=== PATIENT | female | born 1975 | race Caucasian/White ===

== ENCOUNTER 2019-10-06 11:11 | Emergency (ER) | payer OTHER, SELFPAY ==
[2019-10-06 11:41] VITALS: BP 159/100; PULSE 88; RESP 16; TEMP 37.1; O2SAT 98; BMI 35.6
[2019-10-06 11:49] VITALS: BP 159/100; PULSE 84; O2SAT 95
--- NOTE | 2019-10-06 12:16 | HMH.EDGENADL ---
ED Disposition Clinical Impression: Abrasion, Shingles Disposition: Home, Self-Care Condition on Discharge: Good Instructions: DI for Laceration Repair, Shingles Prescriptions: Sulfamethoxazole/Trimethoprim [Bactrim DS tablet] 1 each PO BID 10 Days #20 tab Prescription Printed Losartan Potassium 50 mg PO DAILY 30 Days #30 tab Prescription Printed Valacyclovir HCl [Valtrex] 1,000 mg PO BID #20 tab Prescription Printed Referrals: Cornel Farmer MD [Primary Care Provider] - - Critical Care Critical Care Time: No Attestation: On 10/06/19, the high probability of a clinically significant, sudden or life threatening deterioration of the following system(s) required my full and direct attention, intervention and personal management. The time I documented below is in addition to time spent performing reported procedures but includes the following listed in this critical care notation. Medical Decision Making - Medical Records Medical records reviewed: Yes: I reviewed the patient's medical records. - Jb Inquiry Pt receiving controlled substance: No Vital Signs: 10/06/19 11:41 10/06/19 11:49 Temperature 98.7 F Temperature Source Oral Pulse Rate [Left Radial] 88 84 Respiratory Rate 16 Blood Pressure [Right Arm] 159/100 H 159/100 H Blood Pressure Mean [Right Arm] 119 119 Blood Pressure Source [Right Arm] Automatic Cuff Blood Pressure Position [Right Arm] Sitting Sitting 02 Sat by Pulse Oximetry 98 95 Oxygen Delivery Method Room Air Room Air - Lab Data Lab results reviewed: Yes: I reviewed the patient's lab results. General Adult HPI - General Chief complaint: Wound/Laceration Stated complaint: spider bite maybe Time Seen by Provider: 10/06/19 11:12 Mode of Arrival: Ambulatory Source of Information: Patient Limitations: No Limitations Description of Symptoms (Recalled from ER Triage Doc. by RN): to ed per pvt car with c/o spider bite to rt side groin area starting yesterday pt denies fever, nausea, vomiting. - History of Present Illness HPI narrative: 44-year-old female presents the ED with a lesion on her on her right thigh. She stated started yesterday. She complains about some pain and burning pain and also some numbness.Patient denies any recent cough or shortness of breath, patient denies any sore throat or headache, patient denies any loss of taste or smell, patient denies any malaise or fatigue, patient denies any abdominal pain nausea vomiting or diarrhea. - Related Data Previous Rx's Medication Instructions Recorded Losartan Potassium 50 mg PO DAILY 30 Days #30 tab 10/06/19 Sulfamethoxazole/Trimethoprim 1 each PO BID 10 Days #20 tab 10/06/19 [Bactrim DS tablet] Valacyclovir HCl [Valtrex] 1,000 mg PO BID #20 tab 10/06/19 [facility] History - Hepatitis A Screen Drug use history?: No High risk sexual behaviors?: No History of sexually transmitted infection?: No Currently employed?: No Childcare worker?: No Do you have indoor plumbing?: Yes Do you have electricity?: Yes Attestation statement:: This patient has been screened for Hepatitis A risk factors. I have reviewed the patient's past medical history: Yes - Social History Smoking Status: Current every day smoker Tobacco Type: cigarettes # Packs/Day (cigarettes): 1 Alcohol Intake: never Occupational Status: other Housing: other Household Members: other ROS Obtained: Yes All systems reviewed & no additional complaints - Constitutional Constitutional: Reports system reviewed and no additional complaints, except as docu - Eyes Eyes: Reports system reviewed and no additional complaints, except as docu - ENT Ears, Nose, Mouth, and Throat: Reports system reviewed and no additional complaints, except as docu - Cardiovascular Cardiovascular: Reports system reviewed and no additional complaints, except as docu - Respiratory Respiratory: Yes change in phlegm color - Gastrointestinal Gastrointestingal: Myles
[2019-10-06 12:28] VITALS: BP 159/100; PULSE 84; RESP 16; TEMP 37.1; O2SAT 98
== END 2019-10-06 12:28 | disposition home or self-care (01) ==
PROVIDERS: Emergency Provider Family Medicine
DX: B02.9 Zoster without complications (principal)
CPT/HCPCS: 99282

== ENCOUNTER → 2019-12-02 16:13 | Outpatient (CLI) | payer OTHER, SELFPAY ==
[2019-12-02 16:40] LABS: Basophils % 0.4 % (0.1-2.0); Eosinophils # 0.1 K/mm3 (0.0-0.4); Eosinophils % 0.9 % (0.1-12.0); Hematocrit 42.4 % (37.0-47.0); Lymphocytes # 2.7 K/mm3 (0.7-4.5); Lymphocytes % 29.5 % (10-50); Mean Corpuscular HGB Conc 33.1 g/dL (31.8-35.4); Mean Corpuscular Hemoglobin 25.8 pg (27.0-31.2); Mean Corpuscular Volume 78.1 fl (81-99); Mean Platelet Volume 10.1 fl (7.4-10.4); Monocytes # 0.4 K/mm3 (0.1-1.0); Monocytes % 4.8 % (1.7-9.3); Neutrophils # 5.8 K/mm3 (1.8-7.8); Neutrophils % 64.4 % (37.0-80.0); Platelet Count 213 K/mm3 (142-424); Red Blood Count 5.43 M/mm3 (4.20-5.40); Red Cell Distribution Width 17.1 % (11.5-17.5)
[2019-12-02 17:06] LABS: Chloride 105 mmol/L (98-107); Sodium 139 mmol/L (136-145)
[2019-12-02 17:07] LABS: Potassium 3.8 mmoL/L (3.5-5.1)
[2019-12-02 17:09] LABS: Alanine Aminotransferase 20 U/L (12-78); Albumin Level 4.1 g/dl (3.5-5.0); Albumin/Globulin Ratio 1.3 (1.1-1.8); Alkaline Phosphatase 86 U/L (38-126); Anion Gap 14.8 mEq/L (5-15); Aspartate Amino Transferase 25 U/L (14-36); Bilirubin,Total 0.5 mg/dl (0.2-1.3); Blood Urea Nitrogen 10 mg/dl (7-17); Carbon Dioxide 23 mmol/L (22.0-30.0); Estimated Glomerular Filt Rate 91 ml/min (>60); GFR (African American) 111 ML/MIN (>60); Globulin 3.2 g/dL (1.3-3.2); Total Protein,Serum 7.3 g/dl (6.3-8.2)
[2019-12-02 17:10] LABS: Calcium 9.3 mg/dl (8.4-10.2); Chol/HDL Ratio 5.3 (1-3.5); Cholesterol 159 mg/dl (140-200); Glucose 85 mg/dl (74-100); HDL Cholesterol 30 mg/dl (40-60); Triglycerides 155 mg/dl (30-150); VLDL Cholesterol 31 mg/dL (0-40)
[2019-12-02 17:22] LABS: Direct LDL Cholesterol 107.82 mg/dL (100-129)
[2019-12-02 17:28] LABS: T4 (Thyroxine) 13.5 ug/dl (5.53-11.0)
[2019-12-02 17:30] LABS: 25-OH Vitamin D, Total 22.6 ng/mL (30-100)
[2019-12-02 17:41] LABS: Thyroid Stimulating Hormone 0.97 uIU/mL (0.465-4.68)
== END ==
PROVIDERS: Visit Provider Nurse Practitioner Family
DX: B02.9 Zoster without complications (principal); E55.9 Vitamin D deficiency, unspecified; E13.9 Other specified diabetes mellitus without complications; F32.9 Major depressive disorder, single episode, unspecified
CPT/HCPCS: 80053; 80061; 82306; 84436; 84443; 85025

== ENCOUNTER → 2019-12-24 09:47 | Outpatient (CLI) | payer OTHER, SELFPAY ==
--- NOTE | 2019-12-24 09:50 | XR_ITS ---
PROCEDURE: XR FOOT WT BEARING RT 3V CLINICAL INDICATION: Comparison COMPARISON: No exams were available for comparison FINDINGS: No fracture or dislocation. No lytic or blastic change. There is normal mineralization. The joint spaces are well-preserved. No significant degenerative/arthritic changes. No erosive changes evident. Other findings:There is minimal lateral angulation of the distal phalanx of the great toe IMPRESSION: Minimal lateral angulation distal phalanx great toe otherwise negative Dictated by: Darwin Munroe MD 12/24/2019 16:28 Darwin Munroe MD in [place] 12/24/2019 16:28
--- NOTE | 2019-12-24 09:50 | XR_ITS ---
PROCEDURE: XR FOOT WT BEARING LT 3V CLINICAL INDICATION: PAIN COMPARISON: No exams were available for comparison FINDINGS: There is mild hallux valgus with osteoarthritis of the 1st MTP joint. There is varus angulation of the 1st metatarsal. There is 5 mm lateral subluxation of the proximal phalanx of the great toe. Small cystic areas present in the distal aspect of the 1st metatarsal at 3 mm. IMPRESSION: Mild hallux valgus as described above Dictated by: Darwin Munroe MD 12/24/2019 16:28 Darwin Munroe MD in [place] 12/24/2019 16:28
== END ==
PROVIDERS: PCP Nurse Practitioner Family; Visit Provider Nurse Practitioner
DX: E11.65 Type 2 diabetes mellitus with hyperglycemia (principal); M79.672 Pain in left foot
CPT/HCPCS: 73630

== ENCOUNTER → 2020-01-27 10:19 | Outpatient (CLI) | payer OTHER, SELFPAY ==
[2020-01-27 15:22] LABS: Strep Scrn Group A (Rapid) Negative (Negative)
== END ==
PROVIDERS: PCP Nurse Practitioner Family; Visit Provider Physician Assistant
DX: Z03.818 Encounter for observation for suspected exposure to other biological agents ruled out (principal)
CPT/HCPCS: 87275; 87276; 87430; U0003

== ENCOUNTER 2020-02-09 10:08 | Emergency (ER) | payer OTHER, SELFPAY ==
[2020-02-09 10:14] VITALS: BP 176/90; PULSE 93; RESP 17; TEMP 36.6; O2SAT 99; BMI 33.6
--- NOTE | 2020-02-09 10:55 | XR_ITS ---
PROCEDURE: XR ANKLE LT MIN 3V CLINICAL INDICATION: shut car door on ankle Pain COMPARISON: No exams were available for comparison FINDINGS: No fracture or dislocation. No lytic or blastic change. There is normal mineralization. The joint spaces are well-preserved. No significant degenerative/arthritic changes. No erosive changes evident. Other findings:None. IMPRESSION: No acute findings. Dictated by: Darwin Munroe MD 02/09/2020 11:26 Darwin Munroe MD in [place] 02/09/2020 11:26
[2020-02-09 11:00] VITALS: BP 176/90; PULSE 93; RESP 17; TEMP 36.6; O2SAT 99; BMI 33.6
--- NOTE | 2020-02-09 11:13 | HMH.EDUTC ---
[facility] [place] Disposition Clinical Impression: Contusion of ankle, left Qualifiers: Encounter type: initial encounter Qualified Code(s): S90.02XA - Contusion of left ankle, initial encounter Disposition: Home, Self-Care Condition on Discharge: Good Instructions: DI for Ankle Pain Additional Instructions: Rest the extremity, apply ice for 15 minutes as tolerated three or four times per day, Wear the rigoberto wrap for compression, Elevate the extremity as tolerated while you are resting. Take ibuprofen for pain. I sent in a prescription to your pharmacy. Follow up with Dr. Rob. I put in a referral but you need to call her office and schedule an appointment. Follow up with your regular doctor. GO TO THE ER FOR ANY WORSENING SYMPTOMS Prescriptions: Ibuprofen [Ibuprofen 600mg Tablet] 600 mg PO Q6HP PRN #30 tab PRN Reason: Mild Pain Transmission Status: Received by [id number] Referrals: Charbel Spencer APRN [Primary Care Provider] - Briana Rob DPM [Staff Physician] - Forms: Work/School Release Time of Disposition: 11:29 Medical Decision Making - Medical Records Medical records reviewed: No: I reviewed the patient's medical records. - Jb Inquiry Pt receiving controlled substance: No Vital Signs: 02/09/20 10:14 02/09/20 11:00 02/09/20 11:34 Temperature 97.8 F 97.8 F 97.8 F Temperature Source Oral Oral Pulse Rate 93 H Pulse Rate [Right Radial] 93 H 93 H Respiratory Rate 17 17 17 Blood Pressure 176/90 H Blood Pressure [Right Arm] 176/90 H 176/90 H Blood Pressure Mean [Right Arm] 118 118 Blood Pressure Source [Right Arm] Automatic Cuff Blood Pressure Position [Right Arm] Sitting 02 Sat by Pulse Oximetry 99 99 Oxygen Delivery Method Room Air Room Air - Radiology Data #1 Image(s): Ankle Image Reviewed: Yes I reviewed the patient's radiology image, Yes I have reviewed radiologist's interpretation Preliminary Findings: No Fracture Seen PROCEDURE: XR ANKLE LT MIN 3V CLINICAL INDICATION: shut car door on ankle Pain COMPARISON: No exams were available for comparison FINDINGS: No fracture or dislocation. No lytic or blastic change. There is normal mineralization. The joint spaces are well-preserved. No significant degenerative/arthritic changes. No erosive changes evident. Other findings:None. IMPRESSION: No acute findings. Dictated by: Darwin Munroe MD 02/09/2020 11:26 in [facility] HPI - General Stated complaint: AO 02/09/20 lt ankle pain Time Seen by Provider: 02/09/20 11:13 Mode of Arrival: Ambulatory Source of Information: Patient Limitations: No Limitations Description of Symptoms (Recalled from Triage Doc. by RN): PATIENT C/O LEFT ANKLE PAIN AFTER SHUTTING IT IN A CAR DOOR HEENT Symptoms (Recalled from RN notes): No Resp Symptoms (Recalled from RN notes): No Skin Symptoms (Recalled from RN notes): No MS Symptoms (Recalled from RN notes): Yes Functional Status (Recalled from RN notes): WNL - History of Present Illness Provider Complaint: She states that she was getting out of her car to go in to work this morning when she accidentily slammed the car door on her left ankle. Since then she has had left ankle pain that's worse when she tries to bear weight on the ankle. - Related Data Home Medications Medication Instructions Recorded Confirmed acetaminophen 325 mg capsule 650 mg PO Q4-6H PRN cap 10/29/19 01/29/20 Previous Rx's Medication Instructions Recorded diclofenac sodium 1 % topical gel 4 g TOPICAL QID PRN 30 Days #100 g 12/24/19 meloxicam 7.5 mg tablet 7.5 mg PO DAILY 30 Days #30 tab 12/24/19 amlodipine 5 mg tablet 5 mg PO DAILY #30 tab 01/28/20 cyclobenzaprine 10 mg tablet 10 mg PO BID PRN #60 tab 01/28/20 escitalopram oxalate 10 mg tablet 10 mg PO DAILY #30 tab 01/28/20 ferrous sulfate 325 mg (65 mg 325 mg PO DAILY #30 tab 01/28/20 iron) tablet hydrochlorothiazide 12.5 mg tablet 12.5 mg PO DAILY #90 tab
[2020-02-09 11:34] VITALS: BP 176/90; PULSE 93; RESP 17; TEMP 36.6; O2SAT 99
== END 2020-02-09 11:35 | disposition home or self-care (01) ==
PROVIDERS: Emergency Provider Nurse Practitioner Family; PCP Nurse Practitioner Family
DX: S90.02XA Contusion of left ankle, initial encounter (principal); W23.0XXA Caught, crushed, jammed, or pinched between moving objects, initial encounter; Y92.89 Other specified places as the place of occurrence of the external cause; I10 Essential (primary) hypertension; E11.9 Type 2 diabetes mellitus without complications; F17.210 Nicotine dependence, cigarettes, uncomplicated; Z88.0 Allergy status to penicillin; Z79.899 Other long term (current) drug therapy
CPT/HCPCS: 73610; 99201

== ENCOUNTER → 2020-05-06 07:45 | Outpatient (CLI) | payer OTHER, SELFPAY ==
--- NOTE | 2020-05-06 | CA_ITS ---
APPROVED REPORT Exam: Exercise Treadmill Technologist: Louise Colón, Ht: 5 ft 0 in Wt: 203 lbs BSA: 1.88 m2 Medical History Medications: Omeprazole,,,,, Levothyroxine,,,,, Metoprolol,,,,, Metformin,,,,, HCTZ,,,,, TopIRAMATE,,,,, MeLOXICAM,,,,, Cyclobenzaprine,,,,, Amilodipine,,,,, Stress Test Details Test: Manual Treadmill HR Resting HR: 89 bpm Max Heart Rate (APMHR): 177 bpm Max HR Achieved: 139 bpm Target HR (85% APMHR): 150 bpm % of APMHR: 78 Recovery HR: 90 bpm BP Resting BP: 146/97 mmHg Max BP: 170/94 mmHg Recovery BP: 152.0/81.0 mmHg ECG Resting ECG: NSR, NS ST-T abns Clinical Exercise duration: 04:49 min Highest Stage Achieved: Exercise capacity: 7.0 METs Stress ECG Conclusion Excerised 4:49 on Abner Protocol Max HR: 139 % of PM: 79% Max BP: 170/94 METs: 7.0 Stopped test due to: SOA, Fatigue Symptoms: No CP Arrythmias/Ectopy: None ST-T Changes: No significant changes compared to baseline EKG. J point depression with upsloping ST segments that are WNL at 80msec. Conclusion: Probably normal GXT to HR achieved (79% of PM). Rest and stress Echo images reported separately. Electronically signed by : Darius Robison, 05/06/2020 18:07:40
--- NOTE | 2020-05-06 07:46 | CA_ITS ---
APPROVED REPORT EXAM: Comprehensive 2D, Doppler, and color-flow Echocardiogram [employer] Operations Consultant: Jie Red RVT Ht: 5 ft 0 in Wt: 203lbs BSA: 1.88 BP: 153/90 mmHg Indications: CP,DM,SMOKER,HTN Conclusion 1. Patient exercised on Abner protocol for 4 minutes and 49 seconds, achieved 7.1 mets of workload on treadmill, the blood pressure response to exercise was adequate, the EKG with exercise was nondiagnostic as patient did not achieve the target heart rate. 2. No echocardiographic evidence of segmental wall motion abnormality at this level of exercise to suggest underlying ischemic heart disease. 3. Normal left ventricular systolic function. Electronically signed by : Darius Robison, 05/06/2020 18:11:31
--- NOTE | 2020-05-06 07:46 | CA_ITS ---
APPROVED REPORT EXAM: Comprehensive 2D, Doppler, and color-flow Echocardiogram Bell Attendant: Jie Red RVT Ht: 5 ft 0 in Wt: 203lbs BSA: 1.88 BP: 153/90 mmHg Indications: CP,SMOKER,DM,HTN 2D Dimensions LVOT 1.77 cm (M/F) 1.5-2.5 M-Mode Dimensions RVDd 2.65 cm (0.9-2.6) LA Diam 3.43 cm (1.9-4.0) LVDd 4.69 cm (3.5-5.7) Ao Diam 2.91 cm (2.0-3.7) LVDs 2.93 cm (3.5-5.7) IVSd 1.04 cm (0.6-1.1) PWd 0.82 cm (0.6-1.1) EF (Teich) 67.60% FS 37.50% EDV (Teich) 101.90 mL ESV (Teich) 33.00 mL LV Diastology E Decel Time 250.00 (160-240 msec) E/A Ratio 0.8 MED E' 12.80 (< 7 cm/sec) E'/MED E' Ratio 4.52 (>14) LAT E' 14.80 (<10 cm/sec) E/LAT E' Ratio 3.91 (>14) Mitral Valve MV E Max Antonio. 58.00 (40-130 cm/s) MV A Velocity 74.00 (40-130 cm/s) E/A Ratio 0.78 MV Decel. Time 250.00 (160-240 ms) MV PHT 73.00 ms Pulmonary Valve PV Peak Velocity 70.00 (50-150 cm/s) Tricuspid Valve TR P. Velocity 167.00 cm/s RAP Estimate 10.00 mmHg RVSP 21.20 mmHg Left Ventricle Left atrium is normal size, left ventricle is normal size, there is no concentric left ventricular hypertrophy, visually estimated ejection fraction 55% with no regional wall motion abnormality, diastolic parameters are within normal range. Right Ventricle Right atrium and right ventricle are normal size and contractility. Aortic Valve Aortic valve is grossly normal, there is no aortic stenosis or aortic insufficiency. Mitral Valve Mitral valve is grossly normal, there is trace mitral regurgitation. Tricuspid Valve Tricuspid valve is grossly normal, there is trace tricuspid regurgitation. Pulmonic Valve Pulmonic valve is poorly visualized. Great Vessels Aortic root is normal size. Pericardium No significant pericardial effusion noted. Conclusion 1. Normal left ventricular size, preserved left ventricular systolic function, visually estimated ejection fraction 55% with no regional wall motion abnormality, diastolic parameters are within normal range. 2. Trace mitral and tricuspid regurgitation. 3. No significant pericardial effusion noted. Electronically signed by : Darius Robison, 05/06/2020 18:10:28
== END ==
PROVIDERS: PCP Nurse Practitioner Family; Visit Provider Physician Assistant
DX: R07.9 Chest pain, unspecified (principal); I10 Essential (primary) hypertension
CPT/HCPCS: 93017; 93306; 93350

== ENCOUNTER → 2020-05-12 10:31 | Outpatient (CLI) | payer OTHER, SELFPAY ==
--- NOTE | 2020-05-12 10:51 | XR_ITS ---
PROCEDURE: XR CHEST 2V CLINICAL HISTORY: chest pain, tobacco use COMPARISON: No exams were available for comparison FINDINGS: The cardiomediastinal silhouette and pulmonary vascularity are within normal limits. The lungs are clear without infiltrates, suspicious nodules, or pleural effusions. No acute bony abnormalities. IMPRESSION: No acute findings. Dictated by: Darwin Munroe MD 05/12/2020 15:46 Darwin Munroe MD in [place] 05/12/2020 15:46
[2020-05-12 11:02] LABS: Basophils # 0.1 K/mm3 (0-0.2); Basophils % 0.8 % (0.1-2.0); Eosinophils # 0.1 K/mm3 (0.0-0.4); Eosinophils % 1.1 % (0.1-12.0); Hematocrit 47.9 % (37.0-47.0); Lymphocytes # 2.8 K/mm3 (0.7-4.5); Lymphocytes % 28.5 % (10-50); Mean Corpuscular HGB Conc 31.4 g/dL (31.8-35.4); Mean Corpuscular Hemoglobin 27.4 pg (27.0-31.2); Mean Corpuscular Volume 87.5 fl (81-99); Mean Platelet Volume 9.7 fl (7.4-10.4); Monocytes # 0.4 K/mm3 (0.1-1.0); Monocytes % 4.2 % (1.7-9.3); Neutrophils # 6.4 K/mm3 (1.8-7.8); Neutrophils % 65.4 % (37.0-80.0); Platelet Count 264 K/mm3 (142-424); Red Blood Count 5.48 M/mm3 (4.20-5.40); Red Cell Distribution Width 16.3 % (11.5-17.5); White Blood Count 9.8 K/mm3 (4.8-10.8)
[2020-05-12 11:24] LABS: Alanine Aminotransferase 29 U/L (12-78); Albumin Level 4.5 g/dl (3.5-5.0); Alkaline Phosphatase 75 U/L (38-126); Anion Gap 10.1 mEq/L (5-15); Aspartate Amino Transferase 26 U/L (14-36); Bilirubin,Direct 0.3 mg/dl (0.0-0.4); Bilirubin,Total 0.3 mg/dl (0.2-1.3); Blood Urea Nitrogen 12 mg/dl (7-17); Calcium 9.9 mg/dl (8.4-10.2); Carbon Dioxide 25 mmol/L (22.0-30.0); Chloride 107 mmol/L (98-107); Chol/HDL Ratio 4.2 (1-3.5); Cholesterol 172 mg/dl (140-200); Estimated Glomerular Filt Rate 78 ml/min (>60); GFR (African American) 95 ML/MIN (>60); Glucose 99 mg/dl (74-100); HDL Cholesterol 41 mg/dl (40-60); Potassium 4.1 mmoL/L (3.5-5.1); Sodium 138 mmol/L (136-145); Total Protein,Serum 7.8 g/dl (6.3-8.2); Triglycerides 206 mg/dl (30-150); VLDL Cholesterol 41 mg/dL (0-40)
[2020-05-12 11:35] LABS: Direct LDL Cholesterol 108.51 mg/dL (100-129)
== END ==
PROVIDERS: PCP Nurse Practitioner Family; Visit Provider Physician Assistant
DX: R07.9 Chest pain, unspecified (principal); I10 Essential (primary) hypertension
CPT/HCPCS: 71046; 80048; 80061; 80076; 85025

== ENCOUNTER → 2020-06-14 09:34 | Outpatient (CLI) | payer OTHER, SELFPAY ==
--- NOTE | 2020-06-14 09:36 | CA_ITS ---
APPROVED REPORT Interventional Radiology Tech: Jie Red RVT Study Quality: Good Indications: HTN Risk Factors Hypertension Obesity Renal Artery Doppler Origin (R) 222.5/ cm/sec Proximal (R) 190.7/ cm/sec Mid (R) 219.6/ cm/sec Distal (R) 169.0/ cm/sec Renal Aorta Ratio (R) 2.27 Segmental A. (R) 51.4/23.4 cm/sec RI: 0.54 Segmental A. Sup (R) 51.4/23.4 cm/sec Segmental A. Mid (R) 50.2/14.0 cm/sec Segmental A. Inf (R) 37.4/14.0 cm/sec Origin (L) 170.5/ cm/sec Proximal (L) 180.6/ cm/sec Mid (L) 215.3/ cm/sec Distal (L) 222.5/ cm/sec Renal Aorta Ratio (L) 2.27 Segmental A. (L) 74.3/23.9 cm/sec RI: 0.67 Segmental A. Sup (L) 74.3/23.9 cm/sec Segmental A. Mid (L) 51.7/15.9 cm/sec Segmental A. Inf (L) 71.6/27.9 cm/sec Renal Measurements Kidney Size (R) 11.9x6.6 cm Cortical Thickness (R) 1.1 cm Kidney Size (L) 12.6x6.5 cm Cortical Thickness (L) 1.4 cm Findings Study suggests greater than 60% stenosis of the bilateral renal arteries. There is a gallstone visualized in the GB body. Conclusion Study suggests greater than 60% stenosis of the bilateral renal arteries. There is a gallstone visualized in the GB body. Electronically signed by : Darwin Munroe MD 06/14/2020 14:55:59
== END ==
PROVIDERS: PCP Nurse Practitioner Family; Visit Provider Urology
DX: I10 Essential (primary) hypertension (principal)
CPT/HCPCS: 93976

== ENCOUNTER → 2020-07-03 08:20 | Outpatient (CLI) | payer OTHER, SELFPAY ==
[2020-07-03 09:08] LABS: Basophils # 0.1 K/mm3 (0-0.2); Basophils % 0.6 % (0.1-2.0); Eosinophils # 0.1 K/mm3 (0.0-0.4); Eosinophils % 1.3 % (0.1-12.0); Hematocrit 42.6 % (37.0-47.0); Hemoglobin 13.5 g/dL (12.2-16.2); Lymphocytes # 3.3 K/mm3 (0.7-4.5); Lymphocytes % 36.3 % (10-50); Mean Corpuscular HGB Conc 31.8 g/dL (31.8-35.4); Mean Corpuscular Hemoglobin 26.9 pg (27.0-31.2); Mean Corpuscular Volume 84.6 fl (81-99); Mean Platelet Volume 9.5 fl (7.4-10.4); Monocytes # 0.6 K/mm3 (0.1-1.0); Monocytes % 6.1 % (1.7-9.3); Neutrophils # 5.1 K/mm3 (1.8-7.8); Neutrophils % 55.8 % (37.0-80.0); Platelet Count 245 K/mm3 (142-424); Red Blood Count 5.04 M/mm3 (4.20-5.40); Red Cell Distribution Width 15.3 % (11.5-17.5); White Blood Count 9.1 K/mm3 (4.8-10.8)
[2020-07-03 10:04] LABS: Anion Gap 12.9 mEq/L (5-15); Blood Urea Nitrogen 13 mg/dl (7-17); Calcium 9.4 mg/dl (8.4-10.2); Carbon Dioxide 26 mmol/L (22.0-30.0); Chloride 107 mmol/L (98-107); Estimated Glomerular Filt Rate 78 ml/min (>60); GFR (African American) 94 ML/MIN (>60); Glucose 78 mg/dl (74-100); Potassium 3.9 mmoL/L (3.5-5.1); Sodium 142 mmol/L (136-145)
[2020-07-03 10:18] LABS: Coronavirus 19 IgG Antibody Negative (Negative); Coronavirus 19 IgM Antibody Negative (Negative)
== END ==
PROVIDERS: Visit Provider Urology
DX: I10 Essential (primary) hypertension (principal); I73.9 Peripheral vascular disease, unspecified; I70.1 Atherosclerosis of renal artery; Z72.0 Tobacco use; R42 Dizziness and giddiness
CPT/HCPCS: 36415; 80048; 85025; 86328

== ENCOUNTER 2020-07-05 09:07 | Day surgery (SDC) | payer OTHER, SELFPAY ==
[2020-07-05] VITALS (21 sets, daily range): BP systolic 107–140; BP diastolic 64–87; PULSE 56–89; RESP 12–18; O2SAT 93–99; BMI 41.0
--- NOTE | 2020-07-05 07:29 | IR_ITS ---
APPROVED REPORT Patient Location: Outpatient Healthcare Administrator: GRETA Weller RT (R) PROCEDURES Bilateral selective renal angiography INDICATION Abnormal renal duplex, Suspected renal artery stenosis Informed consent was obtained prior to the procedure. COMPLICATIONS NONE Estimated Blood Loss: LESS THAN 10 ML TECHNIQUE 1% lidocaine used to anesthetize the right femoral groin. The right femoral artery was accessed via the Seldinger technique. A 4 Lebanese sheath was placed in the right femoral artery. The JR4 catheter was used to selectively intubate each renal artery. At the end of the diagnostic angiogram the patient was transferred to the postop holding area in stable condition for sheath removal. ANGIOGRAPHIC RESULTS The left renal artery singular normal The right renal artery singular and has a smooth ostial 10% stenosis IMPRESSION Mild nonflow limiting right renal artery stenosis PLAN 1. Treatment of essential hypertension Electronically signed by : Modesto Martinez, 07/05/2020 10:50:58
== END 2020-07-05 14:45 | disposition home or self-care (01) ==
LOC: CATHLAB 09:08
PROVIDERS: PCP Nurse Practitioner Family; Visit Provider Internal Medicine
DX: I70.1 Atherosclerosis of renal artery (principal); Z79.84 Long term (current) use of oral hypoglycemic drugs; E11.9 Type 2 diabetes mellitus without complications; I10 Essential (primary) hypertension; Z72.0 Tobacco use
CPT/HCPCS: 36252; 99152; C1725; C1769; J1644; Q9967

== ENCOUNTER → 2020-07-08 14:27 | Outpatient (CLI) | payer OTHER, SELFPAY ==
--- NOTE | 2020-07-08 14:28 | CA_ITS ---
APPROVED REPORT Pig Caster: Aubrie Mendez, NAIL GALVANIZER Surgery/Intervention cath 01-05-21 Findings No evidence of pseudoaneurysm, hematoma, or AV fistula of the right groin. Enlarged Lymph node noted. Conclusion No evidence of pseudoaneurysm, hematoma, or AV fistula of the right groin. Electronically signed by : Rabia Mercedes, 07/09/2020 13:11:58
[2020-07-08 14:52] LABS: Microscopic, Urine URINE MICROSCOPIC (MICROSCOPIC)
[2020-07-08 15:15] LABS: Basophils # 0.1 K/mm3 (0-0.2); Basophils % 0.6 % (0.1-2.0); Eosinophils # 0.1 K/mm3 (0.0-0.4); Hematocrit 43.2 % (37.0-47.0); Hemoglobin 13.7 g/dL (12.2-16.2); Lymphocytes # 2.9 K/mm3 (0.7-4.5); Lymphocytes % 28.1 % (10-50); Mean Corpuscular HGB Conc 31.7 g/dL (31.8-35.4); Mean Corpuscular Hemoglobin 27.1 pg (27.0-31.2); Mean Corpuscular Volume 85.4 fl (81-99); Monocytes # 0.6 K/mm3 (0.1-1.0); Monocytes % 5.8 % (1.7-9.3); Neutrophils # 6.8 K/mm3 (1.8-7.8); Neutrophils % 64.6 % (37.0-80.0); Platelet Count 220 K/mm3 (142-424); Red Blood Count 5.06 M/mm3 (4.20-5.40); Red Cell Distribution Width 15.3 % (11.5-17.5); White Blood Count 10.5 K/mm3 (4.8-10.8)
[2020-07-08 16:32] LABS: Appearance,Urine CLEAR (Clear); Bilirubin,Urine Negative (Negative); Blood, Urine Negative (Negative); Color,Urine YELLOW (Yellow); Glucose,Urine (UA) Negative (Negative); Ketones,Urine Negative (Negative); Leukocyte Esterase,Urine Negative (Negative); Nitrate,Urine Negative (Negative); PH,Urine 7.5 (5.0-8.5); Protein,Urine Negative (Negative); Urobilinogen,Urine 0.2 EU/dl (0.2)
[2020-07-08 16:33] LABS: Anion Gap 12.7 mEq/L (5-15); Blood Urea Nitrogen 11 mg/dl (7-17); Calcium 9.3 mg/dl (8.4-10.2); Carbon Dioxide 24 mmol/L (22.0-30.0); Chloride 108 mmol/L (98-107); Estimated Glomerular Filt Rate 109 ml/min (>60); GFR (African American) 131 ML/MIN (>60); Glucose 85 mg/dl (74-100); Potassium 4.7 mmoL/L (3.5-5.1); Sodium 140 mmol/L (136-145)
[2020-07-08 16:41] LABS: Amorphous Sediment,Urine 2+ /lpf
== END ==
PROVIDERS: PCP Nurse Practitioner Family; Visit Provider Internal Medicine Cardiovascular Disease
DX: I70.1 Atherosclerosis of renal artery (principal); I73.9 Peripheral vascular disease, unspecified; R42 Dizziness and giddiness; M79.604 Pain in right leg; M79.605 Pain in left leg; R60.0 Localized edema
CPT/HCPCS: 36415; 80048; 81001; 85025; 93926

== ENCOUNTER → 2020-07-09 10:23 | Outpatient (CLI) | payer OTHER, SELFPAY ==
--- NOTE | 2020-07-09 10:49 | CT_ITS ---
PROCEDURE: CT ABDOMEN PELVIS WO/W CON CLINICAL INDICATION: enlarged lymph node right groin COMPARISON: No exams were available for comparison TECHNIQUE: IV Contrast: 75ML Isovue 370 Oral Contrast None Axial images obtained with sagittal and coronal reformats. All CT scans at the facility use one or more dose reduction, viz: automated exposure control, ma/kV adjustment per patient size (including targeted exams where dose is matched to indication, i.e. head), or iterative reconstruction technique. FINDINGS: LOWER THORAX: Minor bibasal atelectasis is noted. ABDOMEN & PELVIS: The liver, spleen, adrenal glands, pancreas and kidneys are unremarkable. The large and small bowel loops demonstrate no focal wall thickening, obstruction or adjacent inflammatory changes. Mild to moderate fecal retention of the colon is noted. The appendix is normal. No free fluid or free intraperitoneal air. Atherosclerotic vascular calcification is noted. The visualized pelvic structures demonstrate no focal abnormality. No free fluid or free intraperitoneal air. Small fat containing anterior abdominal wall hernia is noted. Minor degenerative changes of the visualized lumbar spine. There are few scattered lymph nodes noted in the bilateral inguinal regions. The largest on the right measures approximately 1.8 x 0.8 x 1 centimeter. No other significant lymphadenopathy is noted. IMPRESSION: No acute intra-abdominal abnormality. Right inguinal lymph node measuring 1.8 x 0.8 x 1 centimeter. Ultrasound of the right inguinal region is recommended for further evaluation. Small fat containing anterior abdominal wall hernia. Dictated by: Rabia Mercedes 07/09/2020 12:29 Rabia Mercedes in [place] 07/09/2020 12:29
[2020-07-09 11:00] LABS: Blood Urea Nitrogen 10 mg/dl (7-17); Estimated Glomerular Filt Rate 91 ml/min (>60); GFR (African American) 110 ML/MIN (>60)
== END ==
PROVIDERS: PCP Nurse Practitioner Family; Visit Provider Internal Medicine
DX: R59.9 Enlarged lymph nodes, unspecified (principal); R93.89 Abnormal findings on diagnostic imaging of other specified body structures
CPT/HCPCS: 36415; 74178; 82565; 84520; Q9967

== ENCOUNTER → 2020-08-05 08:56 | Outpatient (POV) | payer OTHER, SELFPAY ==
[2020-08-05 09:07] VITALS: BP 133/78; PULSE 78; RESP 18; O2SAT 99; BMI 34.9
--- NOTE | 2020-08-05 09:37 | HMH.PMCON ---
Assessment and Plan (1) Neuralgia of right inguinal region Status: Acute Category: Medical Code(s): M79.2 - Neuralgia and neuritis, unspecified - Assessment and plan all Dx Assessment and Plan for all problems:: We will start the patient on Cymbalta 30 mg 1 p.o. daily. We will follow up with her in 3 weeks reassess her symptoms at that time. If she does not get relief we may discuss inguinal nerve block. She has been instructed to call the office if she has any issues prior to her next appointment. Dr. Pina has reviewed this note and agrees with this plan of care. This note was dictated using voice recognition software and may contain errors or omissions HPI - Data of Consult Consult date: 08/05/20 Requesting Physician: Reanna Saba APRN Primary Care Provider: Referral Provider, - Consult Narrative Reason for consult: Right groin pain History of present illness: Ms. Joshi is a 45 year old female who presents today for consultation in regards to her right groin pain. Patient had a catheterization and since then has had quite a bit of burning pain in her right groin area. She does have a CT scan showing a enlarged lymph node in this area. Patient has had injection therapy in the past for her back pain but not for this pain. Patient would like to hold off on injection therapy at this time. We discussed medication management for a short amount of time. Patient has a anaphylaxis to gabapentin and Lyrica. I discussed Cymbalta. She states she is taken this in the past with no adverse reaction. Rates her pain today a 5 out of 10. She states she is had this for about a month and a half. CC: Reanna Saba APRN [facility] History I have reviewed the patient's past medical history: Yes Medical History: Reports:: Hyperlipidemia, Hypertension Denies:: Cancer, Diabetes Mellitus Type 1, Diabetes Mellitus Type 2, MRSA, Seizures *Have you ever received a pneumonia vaccine?: Yes *Have you received a flu vaccine this season?: Yes Other Medical History: Reports: Anemia, Arthritis, Thyroid Disease Other Surgeries: Yes: Angiogram, Amputation: No - *Social History Smoking Status: Current every day smoker Tobacco Type: cigarettes # Packs/Day (cigarettes): 1 #Yrs smoked (if former smoker): 24 Alcohol Intake: never Substance Use Type: denies use *Occupational Status:: other Housing: house Household Members: other *Travel in the last 8 weeks: None Family Hx:: Unable to obtain Review of Systems - Review of Systems ROS General: no recent weight change, no fever, no sleep disturbances Respiratory: no cough, no shortness of air, no recurring pulmonary infections Cardiovascular/Peripheral Vascular: No chest pain, No palpitations, no edema, no shortness of breath. Gastrointestinal: no new onset incontinence, normal bowel movements reported Genitourinary: no new onset incontinence Musculoskeletal: Right groin pain Psychiatric: normal mood/ affect Neurological: [denies new onset weakness in extremities], [denies new onset balance issues] Meds Home Medications Medication Instructions Recorded Confirmed Type acetaminophen 325 mg capsule 650 mg PO Q4-6H PRN cap 10/29/19 07/28/20 History meloxicam 7.5 mg tablet 7.5 mg PO DAILY 30 Days #30 tab 12/24/19 07/28/20 Rx Ibuprofen [Ibuprofen 600mg 600 mg PO Q6HP PRN #30 tab 02/09/20 07/28/20 Rx Tablet] cyclobenzaprine 10 mg tablet 10 mg PO BID PRN #60 tab 06/16/20 07/28/20 Rx Escitalopram Oxalate 10 mg PO DAILY 07/05/20 07/28/20 History Ferrous Sulfate 325 mg PO DAILY 07/05/20 07/28/20 History Levothyroxine Sodium 125 mcg PO DAILY 07/05/20 07/28/20 History [Levothyroxine] amlodipine 10 mg tablet 10 mg PO BID #180 tab 07/30/20 Rx hydrochlorothiazide 12.5 mg tablet 12.5 mg PO DAILY #90 tab 07/30/20 Rx metformin 500 mg tablet,extended 500 mg PO DAILY #90 tab 07/30/20 Rx release 24 hr metoprolol succinate 50 mg 50 mg PO DAILY #90 tab 07/09
== END ==
PROVIDERS: Visit Provider Clinical Nurse Specialist Family Health
DX: M79.2 Neuralgia and neuritis, unspecified (principal)
CPT/HCPCS: 99202; G0463

== ENCOUNTER → 2020-08-26 09:31 | Outpatient (POV) | payer OTHER, SELFPAY ==
[2020-08-26 09:46] VITALS: BP 135/78; PULSE 68; RESP 18; O2SAT 98; BMI 33.2
--- NOTE | 2020-08-26 10:09 | HMH.PAINSOAP ---
[facility] Pain Management SOAP Note Subjective:: Patient is a pleasant 45-year-old white female who presents today for follow-up. Patient was started on Cymbalta she did not tolerate this well. She rates her pain a 4 out of 10. Patient has quite a bit of burning pain in her right groin area secondary to a catheterization she had quite some time ago. She has CT scanning showing an enlarged lymph node in this area however no other additional issues. Patient has had injection therapy in the past for her back pain but not for this pain. Patient is highly allergic to gabapentin and Lyrica. We did tried Cymbalta with no relief. She rates her pain a 4 out of 10 today we discussed inguinal nerve block. ROS General: no recent weight change, no fever, no sleep disturbances Respiratory: no cough, no shortness of air, no recurring pulmonary infections Cardiovascular/Peripheral Vascular: No chest pain, No palpitations, no edema, no shortness of breath. Gastrointestinal: no new onset incontinence, normal bowel movements reported Genitourinary: no new onset incontinence Musculoskeletal: Right groin pain Psychiatric: normal mood/ affect, right groin pain Neurological: [denies new onset weakness in extremities], [denies new onset balance issues] Objective:: Physical Exam General: Alert and oriented x3, no acute distress, pleasant and cooperative, [on room air] Lungs: Resps E/U, Symmetrical chest expansion, Eyes: PERRL Musculoskeletal: Flexion and extension of lumbar spine somewhat guarded secondary to pain, deep tendon reflexes normal, strength in upper and lower extremities [5/5], slightly antalgic gait noted Neurological: speech clear, 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 Dr. Pina has reviewed this note and agrees with this plan of care. This note was dictated using voice recognition software and may contain errors or omissions [facility] History I have reviewed the patient's past medical history: Yes Medical History: Reports:: Hyperlipidemia, Hypertension Denies:: Cancer, Diabetes Mellitus Type 1, Diabetes Mellitus Type 2, MRSA, Seizures *Have you ever received a pneumonia vaccine?: Yes *Have you received a flu vaccine this season?: Yes Other Medical History: Reports: Anemia, Arthritis, Thyroid Disease Other Surgeries: Yes: Angiogram, Amputation: No - *Social History Smoking Status: Current every day smoker Tobacco Type: cigarettes # Packs/Day (cigarettes): 1 #Yrs smoked (if former smoker): 24 Alcohol Intake: never Substance Use Type: denies use *Occupational Status:: other Housing: house Household Members: other *Travel in the last 8 weeks: None Family Hx:: Unable to obtain
== END ==
PROVIDERS: Visit Provider Clinical Nurse Specialist Family Health
DX: G58.8 Other specified mononeuropathies (principal)
CPT/HCPCS: 99212; G0463

== ENCOUNTER 2020-09-10 09:35 | Day surgery (SDC) | payer OTHER, SELFPAY ==
[2020-09-10 09:46] VITALS: BP 184/95; PULSE 78; RESP 18; TEMP 36.6; O2SAT 97; BMI 34.7
[2020-09-10 10:19] VITALS: BP 156/85; PULSE 75; RESP 18; O2SAT 97
[2020-09-10 10:20] VITALS: BP 156/85; PULSE 75; RESP 18; O2SAT 97
--- NOTE | 2020-09-10 10:27 | HMH.PMPROC ---
- Procedure Date: 09/10/20 Time: 10:27 Anesthesiologist:: Fabrice Pina MD Complications:: None Pre-procedure Diagnosis:: Right groin pain with inguinal neuralgia Post-procedure Diagnosis:: Same Indications for Procedure:: Patient is a pleasant 45-year-old white female who developed some right groin pain after cardiac catheterization. They did have groin access. She has now been treated for inguinal neuralgia. She has been on Cymbalta with no relief. She is allergic to gabapentin and Lyrica. We will do a right ileal inguinal/iliohypogastric nerve block today to help with her groin pain on the right side. Procedure Details:: Right ilioinguinal/iliohypogastric nerve block Informed consent was obtained and the risk and benefits of the procedure were explained to the patient. Patient was taken the procedure room. The right groin was prepped using ChloraPrep. A 25-gauge needle was used and we injected 10 mL bupivacaine 0.25% and Depo-Medrol 40 mg into the area of the right inguinal area, right ilioinguinal/iliohypogastric nerves. Patient tolerated procedure well with no complications. Plan and Disposition:: We will follow-up with her in 2 weeks. Will reevaluate symptoms at that time.
[2020-09-10 10:30] VITALS: BP 157/84; PULSE 83; RESP 20; O2SAT 97
== END 2020-09-10 10:32 | disposition home or self-care (01) ==
PROVIDERS: PCP Nurse Practitioner Family; Visit Provider Anesthesiology
DX: R10.31 Right lower quadrant pain (principal); G58.8 Other specified mononeuropathies; E07.9 Disorder of thyroid, unspecified; E78.5 Hyperlipidemia, unspecified; I10 Essential (primary) hypertension; M19.90 Unspecified osteoarthritis, unspecified site; D64.9 Anemia, unspecified; E11.9 Type 2 diabetes mellitus without complications; Z72.0 Tobacco use; Z88.0 Allergy status to penicillin; Z88.6 Allergy status to analgesic agent; Z79.899 Other long term (current) drug therapy
CPT/HCPCS: 64425; J1040

== ENCOUNTER → 2020-10-04 09:50 | Outpatient (POV) | payer OTHER, SELFPAY ==
[2020-10-04 10:08] VITALS: BP 187/91; PULSE 83; RESP 16; O2SAT 99; BMI 40.2
--- NOTE | 2020-10-04 10:33 | HMH.PAINSOAP ---
[facility] Pain Management SOAP Note Subjective:: Patient is a 45-year-old white female who presents today for follow-up after inguinal nerve block. Patient continues to have significant right inguinal pain as well as low back pain and bilateral leg pain. Patient says that following a scope to her right groin, she began to have severe stinging-like sensation to the area. Patient does have chronic low back pain and did undergo surgical intervention of her lumbar spine in [address] Colby in [facility]. She has continued to have significant low back pain since her surgery. She is also having bilateral leg pain with standing and walking as well as paresthesia to her lower extremities. She has undergone multiple modalities of therapy with no significant relief. She has had injective therapy as well as physical therapy for greater than 6 weeks. She is also tried home stretching and ice and heat therapies. Oral medications have not given her relief. She has tried anti-inflammatories. She does rate her pain a 4 out of 10 with sitting and an 8 or 9 out of 10 with any type of movement or work. Patient and I did discuss possible spinal cord stimulation for her chronic low back and lower extremity and groin pain. We also discussed compounding cream to apply topically to the area until she can undergo a psychological evaluation. Review of Systems General: No recent weight changes, no fever, no sleep disturbances Respiratory: No cough, no shortness of air, no recurring pulmonary infections Cardiovascular/peripheral vascular: No chest pain, no palpitations, no edema, no shortness of breath Gastrointestinal: No new onset incontinence, normal bowel movements reported Genitourinary: No new onset incontinence Musculoskeletal: Low back pain with radiation into right groin and bilateral legs with numbness bilateral lower extremities Psychiatric: Normal mood/affect Neurological: [Denies weakness in extremities], [denies balance issues] Objective:: Physical exam General: Alert and oriented x3, no acute distress, pleasant and cooperative, [on room air] Lungs: Respirations even and unlabored, symmetrical chest expansion Eyes: PERRL Musculoskeletal: Flexion and extension of [] lumbar spine somewhat guarded secondary to pain, deep tendon reflexes normal, strength in upper and lower extremities [5/5], [abnormal gait noted], tenderness to palpation to right groin Neurological: 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 She and I had a long discussion today for possible spinal cord stimulation. The patient has tried and failed conservative therapies of physical therapy for more than 6 weeks, home stretching, and anti-inflammatories. She continues use ice and heat therapies. She has had back surgery to her lumbar spine and continues to have pain. She is not considered a surgical candidate. Injective therapy has not given the patient any relief. She continues to have pain in her low back with radiation into right groin bilateral lower extremities with paresthesia. We will see her back in the clinic after her psychological evaluation to discuss further plan of care. Will order compounding cream to apply topically to her low back and groin without gabapentin. Patient does have allergy to gabapentin. Patient has been instructed to contact the clinic with any concerns before the next appointment. Dr. Pina has reviewed this note and agrees with this plan of care. This note was dictated using voice recognition software and make contain errors or omissions. [facility] History I have reviewed the patient's past medical history: Yes Medical History: Reports:: Hyperlipidemia, Hypertension Denies:: Cancer, Diabetes Mellitus Type 1, Diabetes Mellitus Type
== END ==
PROVIDERS: PCP Nurse Practitioner Family; Visit Provider Clinical Nurse Specialist Family Health
DX: M51.16 Intervertebral disc disorders with radiculopathy, lumbar region (principal); R10.31 Right lower quadrant pain; G58.8 Other specified mononeuropathies
CPT/HCPCS: 99212; G0463

== ENCOUNTER 2020-11-10 16:47 | Emergency (ER) | payer OTHER, SELFPAY ==
[2020-11-10 16:48] VITALS: BP 143/81; PULSE 98; RESP 22; TEMP 37.1; O2SAT 98; BMI 34.4
--- NOTE | 2020-11-10 17:17 | HMH.EDUTC ---
[facility] [place] Disposition Clinical Impression: Paresthesia of bilateral legs, Paresthesia and pain of both upper extremities Disposition: Home, Self-Care Condition on Discharge: Good Instructions: Peripheral Neuropathy Additional Instructions: Drink plenty of fluids. Take tylenol for pain or fever. Return if you begin to have difficulty breathing. Follow up with your regular doctor. GO TO THE ER FOR ANY WORSENING SYMPTOMS Prescriptions: methylPREDNISolone [Medrol] 4 mg PO DIRECTED 6 Days #21 tab.ds.pk Transmission Status: Received by [id number] Referrals: Charbel Spencer APRN [Primary Care Provider] - Forms: Work/School Release Time of Disposition: 17:48 Medical Decision Making - Medical Records Medical records reviewed: No: I reviewed the patient's medical records. - Jb Inquiry Pt receiving controlled substance: No Vital Signs: 11/10/20 16:48 11/10/20 17:55 Temperature 98.7 F 98.7 F Temperature Source Oral Pulse Rate 98 H Pulse Rate [Left Radial] 98 H Respiratory Rate 22 22 Blood Pressure 143/81 H Blood Pressure [Right Arm] 143/81 H Blood Pressure Mean [Right Arm] 101 Blood Pressure Source [Right Arm] Automatic Cuff Blood Pressure Position [Right Arm] Sitting 02 Sat by Pulse Oximetry 98 Oxygen Delivery Method Room Air [facility] [place] HPI - General Stated complaint: Pins [place] in hands & feet & weakness Time Seen by Provider: 11/10/20 17:18 - History of Present Illness Provider Complaint: She states that for the past 1 week she has had the feeling of pin and needles sticking in her hands and feet. She has a history of neuropathy. She denies that she is diabetic. She denies any weakness. - Related Data Home Medications Medication Instructions Recorded Confirmed acetaminophen 325 mg capsule 650 mg PO Q4-6H PRN cap 10/29/19 10/27/20 Previous Rx's Medication Instructions Recorded Ibuprofen [Ibuprofen 600mg 600 mg PO Q6HP PRN #30 tab 02/09/20 Tablet] amlodipine 10 mg tablet 10 mg PO BID #180 tab 10/27/20 cyclobenzaprine 10 mg tablet 10 mg PO BID PRN #60 tab 10/27/20 ferrous sulfate 325 mg (65 mg 325 mg PO DAILY #90 tab 10/27/20 iron) tablet hydrochlorothiazide 12.5 mg tablet 12.5 mg PO DAILY #90 tab 10/27/20 levothyroxine 125 mcg capsule 125 mcg PO DAILY #90 cap 10/27/20 metformin 500 mg tablet,extended 500 mg PO DAILY #90 tab 10/27/20 release 24 hr metoprolol succinate 50 mg 50 mg PO DAILY #90 tab 10/27/20 tablet,extended release 24 hr omeprazole 20 mg capsule,delayed 20 mg PO BID #180 cap 10/27/20 release topiramate 100 mg tablet 100 mg PO BID #180 tab 10/27/20 methylPREDNISolone [Medrol] 4 mg PO DIRECTED 6 Days #21 11/10/20 tab.ds.pk Allergies Allergy/AdvReac Type Severity Reaction Status Date / Time bupropion Allergy hives, Verified 10/27/20 10:32 slurred speech gabapentin Allergy hives Verified 10/27/20 10:32 Penicillins Allergy stopped Verified 10/27/20 10:32 heart as a child [facility] History - Hepatitis A Screen Attestation statement:: This patient has been screened for Hepatitis A risk factors. I have reviewed the patient's past medical history: Yes Medical History: Reports:: Hyperlipidemia, Hypertension Denies:: Cancer, Diabetes Mellitus Type 1, Diabetes Mellitus Type 2, MRSA, Seizures Other Medical History: Reports: Anemia, Arthritis, Thyroid Disease. Denies: Blood Transfusion Reaction Other Surgeries: Yes: Angiogram, Amputation: No Fractures: No Comment: skin graft to left foot. back surgery to remove a pc of bone - Social History Smoking Status: Current every day smoker Tobacco Type: cigarettes # Packs/Day (cigarettes): 1 #Yrs smoked (if former smoker): 24 Alcohol Intake: never Substance Use Type: denies use Occupational Status: employed Housing: house Household Members: spouse Family Hx:: Unable to obtain Comment: Mother c emphysema. mother c bipolar disorder. d
[2020-11-10 17:55] VITALS: BP 143/81; PULSE 98; RESP 22; TEMP 37.1; O2SAT 98
== END 2020-11-10 17:56 | disposition home or self-care (01) ==
PROVIDERS: Emergency Provider Nurse Practitioner Family; PCP Nurse Practitioner Family
DX: M79.2 Neuralgia and neuritis, unspecified (principal); R20.2 Paresthesia of skin; I10 Essential (primary) hypertension; E78.5 Hyperlipidemia, unspecified
CPT/HCPCS: 99202; G0463

== ENCOUNTER 2020-12-17 18:25 | Emergency (ER) | payer OTHER, SELFPAY ==
--- NOTE | 2020-12-17 19:19 | XR_ITS ---
PROCEDURE INFORMATION: Exam: XR Right Wrist Exam date and time: 12/17/2020 7:19 PM Age: 45 years old Clinical indication: Pain; Wrist; Right; Additional info: Knot, pain RT wrist no trauma the knot is near her thumb TECHNIQUE: Imaging protocol: XR Right wrist. Views: 3 or more views. COMPARISON: No relevant prior studies available. FINDINGS: Bones/joints: No fracture. No malalignment. Soft tissues: Normal. IMPRESSION: No acute osseous abnormality. Consider ultrasound.
[2020-12-17 19:24] VITALS: BP 197/107; PULSE 80; RESP 12; TEMP 36.6; O2SAT 98; BMI 32.4
--- NOTE | 2020-12-17 20:06 | HMH.EDUTC ---
[facility] [place] Clinical Impression: Right wrist tendinitis, Wrist pain, right Disposition: Home, Self-Care Condition on Discharge: Good Instructions: Tendinopathy, DI for Tendinitis Additional Instructions: Rest the extremity, apply ice for 15 minutes as tolerated three or four times per day, Wear the rigoberto wrap for compression, Elevate the extremity as tolerated while you are resting. Take ibuprofen for pain. I sent in a prescription to your pharmacy. Follow up with Dr. Mercedes (orthopedics). I put in a referral but you need to call his office and schedule an appointment. It's hard to get tendonitis completely better at times, so following up with orthopedics is important if you're not getting some better within 48 to 72 hours by doing the conservative stuff, like rest and antiinflammatory medications. Follow up with your regular doctor. GO TO THE ER FOR ANY WORSENING SYMPTOMS Prescriptions: methylPREDNISolone [Medrol] 4 mg PO DIRECTED 6 Days #21 packet Transmission Status: Received by [id number] Referrals: Charbel Spencer APRN [Primary Care Provider] - Edward Mercedes MD [Staff Physician] - Forms: Work/School Release Time of Disposition: 20:12 Medical Decision Making - Medical Records Medical records reviewed: No: I reviewed the patient's medical records. - Jb Inquiry Pt receiving controlled substance: No Vital Signs: 12/17/20 19:24 12/17/20 20:25 Temperature 97.9 F 98.1 F Temperature Source Oral Pulse Rate 80 Pulse Rate [Left] 80 Respiratory Rate 12 12 Blood Pressure 197/107 H Blood Pressure [Right Arm] 197/107 H Blood Pressure Mean [Right Arm] 137 02 Sat by Pulse Oximetry 98 [facility] [place] HPI - General Stated complaint: r wrist pain Time Seen by Provider: 12/17/20 19:45 Mode of Arrival: Ambulatory Source of Information: Patient Limitations: No Limitations Description of Symptoms (Recalled from Triage Doc. by RN): R wrist pain. there is a small nodule on the wrist that pt states feels like it is grinding when she moves it. HEENT Symptoms (Recalled from RN notes): No Resp Symptoms (Recalled from RN notes): No Skin Symptoms (Recalled from RN notes): No MS Symptoms (Recalled from RN notes): Yes (R wrist pain) Functional Status (Recalled from RN notes): na - History of Present Illness Provider Complaint: She c/o worsening right wrist pain for the past 2 days. She denies any injury or history of similar episodes as this. She denies doing any repetitive task with that hand that she can identify. She denies any other joint pain. She denies any fever or chills. - Related Data Home Medications Medication Instructions Recorded Confirmed acetaminophen 325 mg capsule 650 mg PO Q4-6H PRN cap 10/29/19 11/16/20 Previous Rx's Medication Instructions Recorded Ibuprofen [Ibuprofen 600mg 600 mg PO Q6HP PRN #30 tab 02/09/20 Tablet] amlodipine 10 mg tablet 10 mg PO BID #180 tab 10/27/20 ferrous sulfate 325 mg (65 mg 325 mg PO DAILY #90 tab 10/27/20 iron) tablet hydrochlorothiazide 12.5 mg tablet 12.5 mg PO DAILY #90 tab 10/27/20 levothyroxine 125 mcg capsule 125 mcg PO DAILY #90 cap 10/27/20 metformin 500 mg tablet,extended 500 mg PO DAILY #90 tab 10/27/20 release 24 hr metoprolol succinate 50 mg 50 mg PO DAILY #90 tab 10/27/20 tablet,extended release 24 hr omeprazole 20 mg capsule,delayed 20 mg PO BID #180 cap 10/27/20 release topiramate 100 mg tablet 100 mg PO BID #180 tab 10/27/20 lisinopril 10 mg tablet 10 mg PO DAILY #30 tab 11/16/20 cyclobenzaprine 10 mg tablet 10 mg PO BID PRN #60 tab 11/24/20 methylPREDNISolone [Medrol] 4 mg PO DIRECTED 6 Days #21 12/17/20 packet Allergies Allergy/AdvReac Type Severity Reaction Status Date / Time bupropion Allergy hives, Verified 10/27/20 10:32 slurred speech gabapentin Allergy hives Verified 10/27/20 10:32 Penicillins Allergy stopped Verified 10/27/20 10:32 heart as a child
[2020-12-17 20:25] VITALS: BP 197/107; PULSE 80; RESP 12; TEMP 36.7
== END 2020-12-17 20:25 | disposition home or self-care (01) ==
PROVIDERS: Emergency Provider Nurse Practitioner Family; PCP Nurse Practitioner Family
DX: M65.231 Calcific tendinitis, right forearm (principal); I10 Essential (primary) hypertension; E78.5 Hyperlipidemia, unspecified; F17.210 Nicotine dependence, cigarettes, uncomplicated; Z88.0 Allergy status to penicillin
CPT/HCPCS: 29125; 73110; 99202; G0463

== ENCOUNTER 2021-01-04 10:08 | Outpatient (RCR) | payer OTHER, SELFPAY | END 2021-01-04 11:00 | disposition home or self-care (01) | LOC: OT 10:08 | PROVIDERS: Visit Provider Orthopaedic Surgery | DX: M65.4 Radial styloid tenosynovitis [de Quervain] (principal) | CPT/HCPCS: 97763 ==

== ENCOUNTER → 2021-01-12 11:06 | Outpatient (CLI) | payer OTHER, SELFPAY ==
[2021-01-12 11:44] LABS: Basophils # 0.1 K/mm3 (0-0.2); Basophils % 0.8 % (0.1-2.0); Eosinophils # 0.1 K/mm3 (0.0-0.4); Eosinophils % 1.2 % (0.1-12.0); Hematocrit 44.1 % (37.0-47.0); Hemoglobin 13.5 g/dL (12.2-16.2); Lymphocytes # 3.1 K/mm3 (0.7-4.5); Mean Corpuscular HGB Conc 30.5 g/dL (31.8-35.4); Mean Corpuscular Hemoglobin 26.1 pg (27.0-31.2); Mean Corpuscular Volume 85.5 fl (81-99); Mean Platelet Volume 10.1 fl (7.4-10.4); Monocytes # 0.4 K/mm3 (0.1-1.0); Monocytes % 4.3 % (1.7-9.3); Neutrophils # 6.4 K/mm3 (1.8-7.8); Neutrophils % 62.7 % (37.0-80.0); Platelet Count 267 K/mm3 (142-424); Red Blood Count 5.16 M/mm3 (4.20-5.40); Red Cell Distribution Width 16.4 % (11.5-17.5); White Blood Count 10.1 K/mm3 (4.8-10.8)
[2021-01-12 12:50] LABS: Chloride 111 mmol/L (98-107); Sodium 143 mmol/L (136-145)
[2021-01-12 12:51] LABS: Potassium 4.2 mmoL/L (3.5-5.1)
[2021-01-12 12:53] LABS: Blood Urea Nitrogen 4 mg/dl (7-17); Estimated Glomerular Filt Rate 109 ml/min (>60); GFR (African American) 131 ML/MIN (>60)
[2021-01-12 12:54] LABS: Anion Gap 13.2 mEq/L (5-15); Calcium 9.2 mg/dl (8.4-10.2); Carbon Dioxide 23 mmol/L (22.0-30.0); Glucose 103 mg/dl (74-100)
[2021-01-12 12:57] LABS: HCG Qualitative, Serum Negative (Negative)
== END ==
PROVIDERS: Visit Provider Anesthesiology
DX: Z01.812 Encounter for preprocedural laboratory examination (principal); Z11.52 Encounter for screening for COVID-19; M51.36 Other intervertebral disc degeneration, lumbar region
CPT/HCPCS: 36415; 80048; 84703; 85025; C9803; U0003; U0005

== ENCOUNTER 2021-01-14 12:46 | Day surgery (SDC) | payer OTHER, SELFPAY ==
[2021-01-12 10:23] VITALS: BMI 33.2
[2021-01-14 13:51] VITALS: BP 149/95; PULSE 82; RESP 16; TEMP 36.6; O2SAT 99
--- NOTE | 2021-01-14 14:50 | P.PN_ITS ---
[facility] Anesthesia Checklist - Patient Identification Patient Identification: Arm Band - Structural Data Admitted From: Home Planned Operative Procedure/s: Trial Neurostimulator Lead Placement under Fluoroscopy Consent for Planned Operative Procedure(s) Verified: Yes Verified Documents: Surgical Consent, History and Physical - NPO Status Verified Time NPO: 00:00 - Additional verifications Anesthesia Reactions: No Hx Blood Transfusions: No Blood Transfusion Reaction: No - Airway Assessment C-Spine Mobility Assessed: Yes (mp2) TMJ Mobility Assessed: Yes Dentition: Edentulous - Neurological Assessment Level of Consciousness: Awake, Alert - Anesthesia Plan Anesthesia Risk discussed: Yes Anesthesia Plan: Verified ASA Class: III Anesthesia Type: MAC [facility] History I have reviewed the patient's past medical history: Yes Medical History: Reports:: Hyperlipidemia, Hypertension Denies:: Cancer, Diabetes Mellitus Type 1, Diabetes Mellitus Type 2, Internal Pacemaker, MRSA, Seizures *Have you ever received a pneumonia vaccine?: No *Have you received a flu vaccine this season?: No Other Medical History: Reports: Anemia, Arthritis, Thyroid Disease. Denies: Blood Transfusion Reaction Anesthesia experience/problems:: nac Other Surgeries: Yes: Angiogram, , Other. No: Pacemaker Amputation: No Fractures: No - *Social History Last grade of school completed: Advanced degree Smoking Status: Current every day smoker Tobacco Type: cigarettes # Packs/Day (cigarettes): 1 #Yrs smoked (if former smoker): 24 Alcohol Intake: never Substance Use Type: denies use *Occupational Status:: employed Housing: house Household Members: spouse *Travel in the last 8 weeks: None Family Hx:: Unable to obtain
[2021-01-14 15:37] VITALS: BP 138/73; PULSE 77; RESP 16; TEMP 36.8; O2SAT 99
--- NOTE | 2021-01-14 15:44 | P.OP_ITS ---
Date of procedure: 01/14/21 Pre-op Diagnosis:: Degenerative disc disease of lumbar spine with lumbar radiculopathy symptoms and postlaminectomy syndrome lumbar spine Post-op Diagnosis:: Same Procedure performed:: Spinal cord stimulator lead placement epidural x2 for spinal cord stimulator trial Surgeon:: Fabrice Pina MD HUNTING AND FISHING GUIDE:: Terence Martinez Anesthesia: MAC Estimated blood loss (mL): 1 Clinical Note:: This patient is a pleasant 45-year-old white female who we are treating for low back pain, right groin pain and bilateral leg pain. She has failed all previous conservative therapy including previous surgery, injections, oral medications and physical therapy. Most of her pain is in the low back, right groin and both legs. She has had a successful psychological evaluation. She presents for spinal cord stimulator trial today. Operative findings:: None Operative note:: Informed consent was obtained and the risk and benefits of the procedure were explained to the patient. The patient was taken the operating room placed prone on the procedure table. She was prepped and draped in sterile fashion. C-arm fluoroscopy was used to view the lumbar spine. The skin and subcutaneous tissues were anesthetized using lidocaine. A 17-gauge epidural needle was inserted advanced into the L2-L3 interspace. After confirmation of needle placement in the epidural space stimulating lead was inserted and advanced very easily to the T8-T9-T10 vertebral body. A second needle was inserted advanced a gain into the L2-L3 interspace. Again after confirmation of needle placement in the epidural space a second stimulating lead was inserted and advanced again very easily to the T9-T10 vertebral body. Lead placement was checked in AP and lateral views. Stylets and needles were removed. The leads were secured in place. Patient was taken recovery in stable condition. Patient was programmed by the [employer] marketing development representative with good stimulation in all areas of pain. He was placed on a paresthesia free fast program. Patient was discharged home neurologically intact with good relief of pain symptoms. Plan and disposition: We will follow-up with this patient in 1 week at the lead pull. We will continually monitor every day and make adjustments as needed. If he has any problems questions she is to call us back in the pain clinic. Condition: stable Disposition: PACU Complications:: None
[2021-01-14 15:52] VITALS: BP 136/82; PULSE 71; RESP 16; O2SAT 98
[2021-01-14 16:07] VITALS: BP 132/78; PULSE 69; RESP 16; O2SAT 99
[2021-01-14 16:33] VITALS: BP 168/90; PULSE 79; RESP 16; O2SAT 100
[2021-01-15 14:25] LABS: POC Glucose,Bedside 84 (70-110)
== END 2021-01-14 16:45 | disposition home or self-care (01) ==
LOC: OR 12:47
PROVIDERS: PCP Nurse Practitioner Family; Visit Provider Anesthesiology
PROC: (CPT 63650; principal; 2021-01-14 14:15)
DX: M51.16 Intervertebral disc disorders with radiculopathy, lumbar region (principal); M96.1 Postlaminectomy syndrome, not elsewhere classified; I10 Essential (primary) hypertension; K21.9 Gastro-esophageal reflux disease without esophagitis; E11.9 Type 2 diabetes mellitus without complications; E03.9 Hypothyroidism, unspecified; I73.9 Peripheral vascular disease, unspecified; Z88.0 Allergy status to penicillin; Z88.8 Allergy status to other drugs, medicaments and biological substances; Z79.899 Other long term (current) drug therapy; Z79.84 Long term (current) use of oral hypoglycemic drugs
CPT/HCPCS: 63650 ×2; 63685; 82962; 96374; C1778; J3370

== ENCOUNTER → 2021-01-20 11:43 | Outpatient (POV) | payer OTHER, SELFPAY ==
[2021-01-20 12:04] VITALS: BP 170/94; PULSE 86; RESP 18; O2SAT 99; BMI 33.2
--- NOTE | 2021-01-20 12:34 | HMH.PMPROC ---
- Procedure Date: 01/20/21 Time: 12:34 Anesthesiologist:: Neelima Lozano APRN Complications:: None Pre-procedure Diagnosis:: Degenerative disc disease lumbar spine with lumbar radiculopathy symptoms and postlaminectomy syndrome lumbar spine Post-procedure Diagnosis:: Same Indications for Procedure:: Patient is a 45-year-old white female who presents today for follow-up after spinal cord stimulator trial. The patient will have leads removed today. She reports that she got 80% relief of her pain in her low back and bilateral lower extremities. She does have tenderness at the lead sites, however. She says that her skin is irritated with the tape. This seems to be her only complaint today. Otherwise, she feels that she did have a successful trial. She has tried conservative therapies of physical therapy for more than 6 weeks and home stretching which she does continue at this time. She has tried ice and heat therapies as well as chiropractic therapy in the past. The patient has tried oral medications as well as injections and surgery. She is no longer considered a neurosurgical candidate. She did have a successful psychological evaluation for the SCS device. She would like to proceed with the implant. Physical exam General: Alert and oriented x3, no acute distress, pleasant and cooperative Lungs: Respirations even and unlabored, symmetrical chest expansion Eyes: PERRL Musculoskeletal: Flexion and extension of lumbar [spine] somewhat guarded secondary to pain, [antalgic gait noted] Neurological: Speech clear, no gross sensory deficit Procedure Details:: Procedure in detail: Informed consent was obtained. The risks and benefits of the procedure were explained to the patient. The patient was taken to the procedure room where noninvasive monitors were placed, including noninvasive blood pressure cuff and pulse oximeter. The area around the leads was examined and there were no signs or symptoms of infection. The skin was cleansed using chlorhexidine around the trial leads. Both leads were removed without incident. Leads were complete and intact. Dressing was placed. Patient tolerated the procedure well with no complications. Patient got 80% relief during the trial. We will proceed with implant. Plan and Disposition:: Patient is a 45-year-old white female who did undergo lead removal today. She did have a successful spinal cord stimulator trial. She is treated for degenerative disc disease lumbar spine with lumbar radiculopathy symptoms and postlaminectomy syndrome. Failed relief with injections, oral medications, physical therapy, and continued home stretching prior to the trial. She has not gotten relief with anti-inflammatories or ice and heat therapies. She is continue with home stretching at this time. The patient did have a successful psychological evaluation and was deemed an appropriate candidate. She got 80% relief during her trial. We will proceed with the implant. She is not on any anticoagulation therapy. The procedure was explained in detail to the patient and she would like to proceed. Risks and benefits of the procedure have been explained to the patient. Patient would like to proceed with the procedure. We will see the patient back after her implant. Patient has been instructed to contact the clinic with any concerns before the next appointment. Dr. Pina has reviewed this note and agrees with this plan of care. This note was dictated using voice recognition software and make contain errors or omissions.
== END ==
PROVIDERS: Visit Provider Clinical Nurse Specialist Family Health
DX: M51.16 Intervertebral disc disorders with radiculopathy, lumbar region (principal); M96.1 Postlaminectomy syndrome, not elsewhere classified
CPT/HCPCS: 99212; G0463

== ENCOUNTER → 2021-02-28 09:34 | Outpatient (CLI) | payer OTHER, SELFPAY ==
[2021-02-28 10:41] LABS: Basophils % 0.4 % (0.1-2.0); Eosinophils # 0.1 K/mm3 (0.0-0.4); Eosinophils % 0.8 % (0.1-12.0); Hematocrit 40.8 % (37.0-47.0); Hemoglobin 12.9 g/dL (12.2-16.2); Lymphocytes # 2.9 K/mm3 (0.7-4.5); Lymphocytes % 26.4 % (10-50); Mean Corpuscular HGB Conc 31.5 g/dL (31.8-35.4); Mean Corpuscular Hemoglobin 25.9 pg (27.0-31.2); Mean Corpuscular Volume 82.1 fl (81-99); Mean Platelet Volume 9.6 fl (7.4-10.4); Monocytes # 0.6 K/mm3 (0.1-1.0); Monocytes % 5.3 % (1.7-9.3); Neutrophils # 7.5 K/mm3 (1.8-7.8); Neutrophils % 67.2 % (37.0-80.0); Platelet Count 281 K/mm3 (142-424); Red Blood Count 4.97 M/mm3 (4.20-5.40); Red Cell Distribution Width 16.5 % (11.5-17.5); White Blood Count 11.1 K/mm3 (4.8-10.8)
[2021-02-28 10:56] LABS: Chloride 107 mmol/L (98-107); Sodium 140 mmol/L (136-145)
[2021-02-28 10:59] LABS: Blood Urea Nitrogen 13 mg/dl (7-17); Calcium 9.4 mg/dl (8.4-10.2); Carbon Dioxide 24 mmol/L (22.0-30.0); Estimated Glomerular Filt Rate 91 ml/min (>60); GFR (African American) 110 ML/MIN (>60); Glucose 97 mg/dl (74-100)
== END ==
PROVIDERS: Visit Provider Anesthesiology
DX: Z01.812 Encounter for preprocedural laboratory examination (principal); Z20.822 Contact with and (suspected) exposure to COVID-19; M51.36 Other intervertebral disc degeneration, lumbar region
CPT/HCPCS: 36415; 80048; 85025; C9803; U0003; U0005

== ENCOUNTER 2021-03-02 08:30 | Day surgery (SDC) | payer OTHER, SELFPAY ==
[2021-02-22 13:26] VITALS: BMI 33.2
[2021-03-02 09:00] LABS: Urine Pregnancy, HCG Qual. Negative (Negative)
[2021-03-02 09:06] VITALS: BP 154/82; PULSE 78; RESP 18; TEMP 36.8; O2SAT 100
--- NOTE | 2021-03-02 09:48 | P.PN_ITS ---
[facility] Anesthesia Checklist - Patient Identification Patient Identification: Arm Band - Structural Data Admitted From: Home Planned Operative Procedure/s: Spinal cord stimulator implant Consent for Planned Operative Procedure(s) Verified: Yes - NPO Status Verified Time NPO: 00:00 - Additional verifications Anesthesia Reactions: No Hx Blood Transfusions: No Blood Transfusion Reaction: No - Airway Assessment C-Spine Mobility Assessed: Yes TMJ Mobility Assessed: Yes Dentition: Edentulous - Neurological Assessment Level of Consciousness: Awake Hx Seizures: No Numbness or tingling in extremities: Yes - Anesthesia Plan Anesthesia Risk discussed: Yes Anesthesia Plan: Verified ASA Class: III Anesthesia Type: MAC [facility] History I have reviewed the patient's past medical history: Yes Medical History: Reports:: Diabetes Mellitus Type 2, Gastroesophageal Reflux Disease(GERD), Hyperlipidemia, Hypertension Denies:: Cancer, Diabetes Mellitus Type 1, Internal Pacemaker, MRSA, Seizures *Have you ever received a pneumonia vaccine?: No *Have you received a flu vaccine this season?: No Other Medical History: Reports: Anemia, Arthritis, Thyroid Disease. Denies: Blood Transfusion Reaction Anesthesia experience/problems:: None Other Surgeries: Yes: Angiogram, , Other. No: Pacemaker Amputation: No Fractures: No - *Social History Last grade of school completed: Advanced degree Smoking Status: Current every day smoker Tobacco Type: cigarettes # Packs/Day (cigarettes): 1 #Yrs smoked (if former smoker): 24 Alcohol Intake: never Substance Use Type: denies use *Occupational Status:: employed Housing: house Household Members: spouse *Travel in the last 8 weeks: None Family Hx:: Unable to obtain
--- NOTE | 2021-03-02 12:50 | HMH.OPNOTE ---
Date of procedure: 03/02/21 Pre-op Diagnosis:: Degenerative disc disease of the lumbar spine with radiculopathy, postlaminectomy syndrome Post-op Diagnosis:: Same Procedure performed:: Placement of right pain stimulator generator Surgeon:: Santiago Rosenberg MD CLINICAL TRIALS NURSE:: Agustín Harding, Gaurang Wilson, Terence Martinez, Madhav Alberto, Stevie Sarmiento, Rob Martin, Other Anesthesia: MAC Estimated blood loss (mL): 5 Operative findings:: not applicable Operative note:: Once adequate IV sedation was obtained via anesthesia and local anesthesia 1% Xylocaine with epinephrine the patient was placed prone on the operating table. The back and flanks were prepped and draped in sterile fashion. Paraspinal incision was made by Dr. Pina there which 2 epidural leads were placed in the epidural space to the area desired by Dr. Pina. These were then fixed the paraspinal fascia with fixation devices and 2-0 Prolene sutures. A right flank incision was made in which made a pocket for placement of the generator. Both pockets irrigated with antibiotic solution. Utilizing tunneling device the catheters were passed from the paraspinal incision to the pocket incision. Leads fixed to the generator which was placed in the pocket. Evaluation of the system noted to be functioning properly. At this point the subcutaneous tissues were closed with interrupted stitches of 2-0 Vicryl and skin was closed in particular 4-0 nylon. Wound VAC dressing and a binder applied to the wound. The patient taught procedure well in recovery and stabilization. Upon recovery the patient will be discharged home and will have arrangements made for follow-up. Antibiotic x1 week per protocol. The patient taught procedure well. Condition: stable Disposition: PACU Complications:: None
[2021-03-02 13:04] VITALS: BP 119/71; PULSE 82; RESP 16; TEMP 36.6; O2SAT 99
[2021-03-02 13:19] VITALS: BP 151/78; PULSE 77; RESP 16; O2SAT 98
[2021-03-02 13:34] VITALS: BP 117/50; PULSE 79; RESP 16; O2SAT 98
[2021-03-02 13:59] VITALS: BP 132/84; PULSE 72; RESP 16; O2SAT 99
--- NOTE | 2021-03-02 15:18 | P.OP_ITS ---
Date of procedure: 03/02/21 Pre-op Diagnosis:: Degenerative disc disease of lumbar spine with lumbar radiculopathy symptoms and postlaminectomy syndrome lumbar spine Post-op Diagnosis:: Same Procedure performed:: Placement of spinal cord stimulator leads epidural x2 for permanent spinal cord stimulator Surgeon:: Fabrice Pina MD LAUNDERETTE ATTENDANT:: Madhav Alberto Anesthesia: MAC Estimated blood loss (mL): 5 Clinical Note:: Patient is a pleasant 45-year-old white female who we are treating for low back pain with lumbar radiculopathy symptoms and postlaminectomy syndrome lumbar spine. She has failed all previous conservative treatments including injections, oral medications, physical therapy and previous surgery. She has had a successful spinal cord stimulator trial and a successful psychological evaluation. She presents for permanent placement of spinal cord stimulator today. Operative findings:: None Operative note:: Informed consent was obtained the risk and benefits of the procedure were explained to the patient. Patient was taken the operating room placed prone on the procedure table. She was prepped and draped in sterile fashion. C-arm fluoroscopy was used to view the lumbar spine. The skin and subcutaneous tissues adjacent to the L1-L2 and L2-L3 interspace were anesthetized using lidocaine. I made an incision and dissected down to the lumbar paraspinous fascia. A 17-gauge epidural needle was inserted and advanced into the L1-L2 interspace. After confirmation needle placement in the epidural space a stimulating lead was inserted and advanced very easily to the T8-T9 vertebral bodies. A second needle was inserted and advanced again into the L1-L2 interspace. Again after confirmation of needle placement in the epidural space a second stimulating lead was inserted and advanced again very easily to the T8- T9 vertebral bodies. The leads were checked in AP and lateral views. The stylets and needles were removed. The leads were secured to the fascia with anchoring devices and 2-0 Prolene. The generator pocket was created by Dr. Rosenberg. I attached the leads to the generator. Impedances were checked and found to be okay. The generator was placed in the pocket. Both incisions were irrigated with bacitracin solution. Both incisions were then closed with 2-0 Vicryl followed by 4-0 nylon. A wound VAC was placed over both incisions. The patient was placed in an abdominal binder taken recovery stable condition. The patient tolerated the procedure well with no complications. Patient was programmed by the [employer] contact representative with good stimulation in all areas of pain. Patient was discharged home neurologically intact with good relief of pain symptoms. She was placed on postop antibiotics. Plan and disposition: We will follow-up with this patient in 1 week for wound check and reprogramming. We will follow-up in 2 weeks for suture removal. If she has any problems or questions she is to call us back in the pain clinic. Condition: stable Disposition: PACU Complications:: None
[2022-01-05 10:54] LABS: POC Glucose,Bedside 97 (70-110)
== END 2021-03-02 14:00 | disposition home or self-care (01) ==
LOC: OR 08:31
PROVIDERS: PCP Nurse Practitioner Family; Visit Provider Anesthesiology
PROC: (CPT 63685; principal; 2021-03-02 10:30)
DX: M51.16 Intervertebral disc disorders with radiculopathy, lumbar region (principal); M96.1 Postlaminectomy syndrome, not elsewhere classified; E11.9 Type 2 diabetes mellitus without complications; K21.9 Gastro-esophageal reflux disease without esophagitis; E78.5 Hyperlipidemia, unspecified; I10 Essential (primary) hypertension; D64.9 Anemia, unspecified; M19.90 Unspecified osteoarthritis, unspecified site; E07.9 Disorder of thyroid, unspecified; Z72.0 Tobacco use; Z88.0 Allergy status to penicillin; Z88.8 Allergy status to other drugs, medicaments and biological substances
CPT/HCPCS: 63685; 63650 ×2; 81025; 82962; 96374; C1778; C1820

== ENCOUNTER → 2021-03-08 11:30 | Outpatient (POV) | payer OTHER, SELFPAY ==
[2021-03-08 11:48] VITALS: BP 152/99; PULSE 85; RESP 20; TEMP 36.4; O2SAT 100; BMI 34.2
--- NOTE | 2021-03-08 12:12 | P.CONS_ITS ---
[facility] Pain Management SOAP Note Subjective:: Patient is a 45-year-old white male who presents today for follow-up after [employer] spinal cord stimulator implant. He is reporting to have extreme incisional pain. She rates her pain an 8 out of 10 to the area. She is getting relief, however, to her low back and bilateral lower extremities. She is here today to have her wound VAC removed. Review of Systems General: No recent weight changes, no fever, no sleep disturbances Respiratory: No cough, no shortness of air, no recurring pulmonary infections Cardiovascular/peripheral vascular: No chest pain, no palpitations, no edema, no shortness of breath Gastrointestinal: No new onset incontinence, normal bowel movements reported Genitourinary: No new onset incontinence Musculoskeletal: Low back pain, bilateral lower extremity pain, incisional pain Psychiatric: [Normal mood/affect] Neurological: [Denies weakness in extremities], [denies balance issues] Objective:: Physical exam General: Alert and oriented x3, no acute distress, pleasant and cooperative Lungs: Respirations even and unlabored, symmetrical chest expansion Eyes: PERRL Musculoskeletal: Flexion and extension of lumbar [spine] somewhat guarded secondary to pain, [antalgic gait noted] Neurological: Speech clear, no gross sensory deficit Assessment:: Degenerative disc disease lumbar spine with lumbar radiculopathy symptoms Plan:: Patient is having incisional pain, however incision is well approximated, no redness, no drainage, no edema to site. We will plan to follow-up with the patient in 2 weeks for suture removal. She is getting relief of her low back pain and bilateral lower extremity pain. She has been instructed to contact clinic she has no concerns for next morning. Patient has been instructed to contact the clinic with any concerns before the next appointment. Dr. Pina has reviewed this note and agrees with this plan of care. This note was dictated using voice recognition software and make contain errors or omissions. [facility] History I have reviewed the patient's past medical history: Yes Medical History: Reports:: Diabetes Mellitus Type 2, Gastroesophageal Reflux Disease(GERD), Hyperlipidemia, Hypertension Denies:: Cancer, Diabetes Mellitus Type 1, Internal Pacemaker, MRSA, Seizures *Have you ever received a pneumonia vaccine?: No *Have you received a flu vaccine this season?: No Other Medical History: Reports: Anemia, Arthritis, Thyroid Disease. Denies: Blood Transfusion Reaction Other Surgeries: Yes: Angiogram, , Other. No: Pacemaker Amputation: No Fractures: No - *Social History Smoking Status: Current every day smoker Tobacco Type: cigarettes # Packs/Day (cigarettes): 1 #Yrs smoked (if former smoker): 24 Alcohol Intake: never Substance Use Type: denies use *Occupational Status:: employed Housing: house Household Members: spouse *Travel in the last 8 weeks: None Family Hx:: Unable to obtain
== END ==
PROVIDERS: Visit Provider Clinical Nurse Specialist Family Health
DX: M51.16 Intervertebral disc disorders with radiculopathy, lumbar region (principal); Z09 Encounter for follow-up examination after completed treatment for conditions other than malignant neoplasm; Z96.82 Presence of neurostimulator
CPT/HCPCS: 99212; G0463

== ENCOUNTER → 2021-03-22 09:27 | Outpatient (POV) | payer OTHER, SELFPAY ==
--- NOTE | 2021-03-22 09:52 | HMH.PAINSOAP ---
[facility] Pain Management SOAP Note Subjective:: Patient is a pleasant 45-year-old female who comes in here today for 3 week follow-up after a spinal cord stimulator placement. Patient is currently being treated for degenerative disc disease of the lumbar spine lumbar radiculopathy symptoms. After the procedure, patient says that she's had tremendous relief. She reports no issues after the procedure. Today, she says that her pain is mostly around her surgical site and rates her pain as 3 out of 10. She comes today for suture removal. Her Jb number is [id number] with an active morphine equivalent of zero. Drug screens have been reviewed and appropriate. Review of Systems General: No recent weight changes, no fever, no sleep disturbances Respiratory: No cough, no shortness of air, no recurring pulmonary infections Cardiovascular/peripheral vascular: No chest pain, no palpitations, no edema, no shortness of breath Gastrointestinal: No new onset incontinence, normal bowel movements reported Genitourinary: No new onset incontinence Musculoskeletal: Low back pain Psychiatric: [Normal mood/affect] Neurological: [Denies weakness in extremities], [denies balance issues] Objective:: Physical exam General: Alert and oriented x3, no acute distress, pleasant and cooperative Lungs: Respirations even and unlabored, symmetrical chest expansion Eyes: PERRL Musculoskeletal: Flexion and extension of lumbar [spine] somewhat guarded secondary to pain, [antalgic gait noted] Skin: Surgical sites are healing well. No erythema, discharges, swelling. Neurological: Speech clear, no gross sensory deficit Assessment:: Degenerative disc disease of the lumbar spine with lumbar radiculopathy Plan:: Patient is here today for a 3-week follow-up after a spinal cord stimulator placement. We removed her surgical sutures today and placed Steri-Strips on them. Surgical sites are healing well with no discharge, erythema, and swelling. I have advised the patient to keep wearing her abdominal binder. We will follow up with the patient in 2 weeks. Patient is also requesting a letter saying that she still needs to heal for three more weeks. Patient has been instructed to contact the clinic with any concerns before the next appointment. Dr. Pina has reviewed this note and agrees with this plan of care. This note was dictated using voice recognition software and make contain errors or omissions. [facility] History Medical History: Reports:: Diabetes Mellitus Type 2, Gastroesophageal Reflux Disease(GERD), Hyperlipidemia, Hypertension Denies:: Cancer, Diabetes Mellitus Type 1, Internal Pacemaker, MRSA, Seizures *Have you ever received a pneumonia vaccine?: No *Have you received a flu vaccine this season?: No Other Medical History: Reports: Anemia, Arthritis, Thyroid Disease. Denies: Blood Transfusion Reaction Other Surgeries: Yes: Angiogram, , Other. No: Pacemaker Amputation: No Fractures: No - *Social History Smoking Status: Current every day smoker Tobacco Type: cigarettes # Packs/Day (cigarettes): 1 #Yrs smoked (if former smoker): 24 Alcohol Intake: never Substance Use Type: denies use *Occupational Status:: employed Housing: house Household Members: spouse *Travel in the last 8 weeks: Inside the [place] Family Hx:: Unable to obtain
[2021-03-22 10:03] VITALS: BP 164/90; PULSE 83; RESP 18; O2SAT 100; BMI 33.2
== END ==
PROVIDERS: Visit Provider Clinical Nurse Specialist Family Health
DX: M51.16 Intervertebral disc disorders with radiculopathy, lumbar region (principal)
CPT/HCPCS: 99212; G0463

== ENCOUNTER → 2021-04-07 11:58 | Outpatient (POV) | payer OTHER, SELFPAY ==
[2021-04-07 12:05] VITALS: BP 150/90; PULSE 87; RESP 18; O2SAT 97; BMI 33.2
--- NOTE | 2021-04-07 12:13 | HMH.PAINSOAP ---
[facility] Pain Management SOAP Note Subjective:: Patient is a 45-year-old white female who presents today for follow-up. The patient did undergo spinal cord stimulator implant due to continued low back pain and lumbar radicular symptoms. She is following up today after suture removal. She is doing very well. She has pain at a 2 out of 10. She is much more functional. She would like to discuss today returning to work. She is nearing 6 weeks postoperative. She is doing very well and has no complaints at this time. She is continuing to wear her abdominal binder. Review of Systems General: No recent weight changes, no fever, no sleep disturbances Respiratory: No cough, no shortness of air, no recurring pulmonary infections Cardiovascular/peripheral vascular: No chest pain, no palpitations, no edema, no shortness of breath Gastrointestinal: No new onset incontinence, normal bowel movements reported Genitourinary: No new onset incontinence Musculoskeletal: Intermittent low back pain with radiation into bilateral lower extremities minimal at this time Psychiatric: [Normal mood/affect] Neurological: [Denies weakness in extremities], [denies balance issues] Objective:: Physical exam General: Alert and oriented x3, no acute distress, pleasant and cooperative Lungs: Respirations even and unlabored, symmetrical chest expansion Eyes: PERRL Musculoskeletal: Flexion and extension of lumbar [spine] somewhat guarded secondary to pain, [antalgic gait noted] Neurological: Speech clear, no gross sensory deficit Skin: Incision well approximated, no redness, no drainage, no edema to site. Steri-Strips intact Assessment:: Degenerative disc disease lumbar spine with lumbar radiculopathy symptoms Plan:: Patient is doing well since implant. She is not having pain at this time. Plan to follow-up with her in 3 months for further evaluation. She has been advised she can contact clinic she has any changes in symptoms. Patient has been instructed to contact the clinic with any concerns before the next appointment. Dr. Pina has reviewed this note and agrees with this plan of care. This note was dictated using voice recognition software and make contain errors or omissions. [facility] History I have reviewed the patient's past medical history: Yes Medical History: Reports:: Diabetes Mellitus Type 2, Gastroesophageal Reflux Disease(GERD), Hyperlipidemia, Hypertension Denies:: Cancer, Diabetes Mellitus Type 1, Internal Pacemaker, MRSA, Seizures *Have you ever received a pneumonia vaccine?: No *Have you received a flu vaccine this season?: No Other Medical History: Reports: Anemia, Arthritis, Thyroid Disease. Denies: Blood Transfusion Reaction Other Surgeries: Yes: No Previous Surgery, Angiogram, , Other (neuro stimulator). No: Pacemaker Amputation: No Fractures: No - *Social History Smoking Status: Current every day smoker Tobacco Type: cigarettes # Packs/Day (cigarettes): 1 #Yrs smoked (if former smoker): 24 Alcohol Intake: never Substance Use Type: denies use *Occupational Status:: employed Housing: house Household Members: spouse *Travel in the last 8 weeks: None Family Hx:: Unable to obtain
== END ==
PROVIDERS: Visit Provider Clinical Nurse Specialist Family Health
DX: M51.16 Intervertebral disc disorders with radiculopathy, lumbar region (principal)
CPT/HCPCS: 99212; G0463

== ENCOUNTER → 2021-05-16 13:46 | Outpatient (CLI) | payer OTHER, SELFPAY | PROVIDERS: PCP Nurse Practitioner Family; Visit Provider Nurse Practitioner | DX: Z20.822 Contact with and (suspected) exposure to COVID-19 (principal) | CPT/HCPCS: C9803; U0003; U0005 ==

== ENCOUNTER → 2021-06-06 09:35 | Outpatient (POV) | payer OTHER, SELFPAY ==
[2021-06-06 10:19] VITALS: BP 156/83; PULSE 76; RESP 18; TEMP 36.7; O2SAT 100; BMI 33.2
--- NOTE | 2021-06-11 21:22 | HMH.PAINSOAP ---
[facility] Pain Management SOAP Note Subjective:: This patient is a very pleasant 45-year-old white female who presents today for follow-up. She is currently being treated for degenerative disc disease of lumbar spine with lumbar radiculopathy. She has a [employer] spinal cord stimulator that was implanted recently and she states that it is functioning appropriately. Her incisions were healing appropriately and she recently underwent staple removal. However, she continues to experience discomfort over the generator site and she states that the pain is present even when she is not eating again any hard surface. She states that she tried applying compounding cream but unfortunately did not get very much pain relief with this. She rates the pain today as a 5 out of 10. Objective:: General: Alert and oriented x3, no acute distress, pleasant and cooperative Lungs: Resps E/U, symmetric chest expansion Eyes: PERRL Musculoskeletal: limited flexion and extension of the lumbar spine secondary to pain. Deep tendon reflexes were normal in bilateral lower extremities. Motor exam was grossly intact in the bilateral lower extremities, antalgic gait noted. Neurological: Speech is clear, automatic print developer equal, no gross sensory deficits Assessment:: Degenerative disc disease of the lumbar spine with Lumbar radiculopathy Plan:: I discussed with the patient that she should apply [id number] Voltaren gel to see if this helps with her discomfort over the generator site. We will follow-up with the patient in 1 month for reassessment of her chronic pain symptoms. If she continues to experience discomfort at the generator site we can inject 1% lidocaine subcutaneously to help you the discomfort. Jb and practices reviewed and appropriate. [facility] History Medical History: Reports:: Diabetes Mellitus Type 2, Gastroesophageal Reflux Disease(GERD), Hyperlipidemia, Hypertension Denies:: Cancer, Diabetes Mellitus Type 1, Internal Pacemaker, MRSA, Seizures *Have you ever received a pneumonia vaccine?: Yes *Have you received a flu vaccine this season?: No Other Medical History: Reports: Anemia, Arthritis, Thyroid Disease. Denies: Blood Transfusion Reaction Other Surgeries: Yes: No Previous Surgery, Angiogram, , Other (neuro stimulator). No: Pacemaker Amputation: No Fractures: No - *Social History Smoking Status: Current every day smoker Tobacco Type: cigarettes # Packs/Day (cigarettes): 1 #Yrs smoked (if former smoker): 24 Alcohol Intake: never Substance Use Type: denies use *Occupational Status:: other Housing: house Household Members: spouse *Travel in the last 8 weeks: None Family Hx:: Unable to obtain
== END ==
PROVIDERS: Visit Provider Anesthesiology Pain Medicine
DX: M51.16 Intervertebral disc disorders with radiculopathy, lumbar region (principal)
CPT/HCPCS: 99212; G0463

== ENCOUNTER → 2021-06-27 09:45 | Outpatient (POV) | payer OTHER, SELFPAY ==
[2021-06-27 10:49] VITALS: BP 149/83; PULSE 75; RESP 20; TEMP 36.8; O2SAT 98; BMI 32.3
--- NOTE | 2021-06-27 12:06 | P.CONS_ITS ---
[facility] Pain Management SOAP Note Subjective:: Patient is a pleasant 46-year-old female who presents today for follow-up. Patient is currently being treated for degenerative disc disease of the lumbar spine with lumbar radiculopathy symptoms. Patient is currently being managed with a [employer] spinal cord stimulator that was implanted about 4 months ago. Says that the stimulator is helping her significantly with her pain. Today, patient is still complaining of pain around her generator site. She said that this started hurting about a month ago. She has tried using Voltaren gel around her site. Even with the cream, she still having significant pain. She rates her pain around 4 out of 10. [facility] #[id number] with an active morphine equivalent of 0. General: No recent weight changes, no fever, no sleep disturbances Respiratory: No cough, no shortness of air, no recurring pulmonary infections Cardiovascular/peripheral vascular: No chest pain, no palpitations, no edema, no shortness of breath Gastrointestinal: No new onset incontinence, normal bowel movements reported Genitourinary: No new onset incontinence Musculoskeletal: Back pain Psychiatric: [Normal mood/affect] Neurological: [Denies weakness in extremities], [denies balance issues] Objective:: General: Alert and oriented x3, no acute distress, pleasant and cooperative, [on room air] Lungs: Respirations even and unlabored, symmetrical chest expansion Eyes: PERRL Musculoskeletal: Flexion and extension of bar [spine] somewhat guarded secondary to pain, patient is very tender to touch around her spinal cord stimulator and around her midline incision. There is no noticeable redness, swelling around the pump. Neurological: Speech clear, no gross sensory deficit Assessment:: Degenerative disc disease of the lumbar spine with lumbar radiculopathy symptoms Plan:: Patient is still having significant pain around her spinal cord stimulator that was placed about 4 months ago. She said that this started about a month ago. We started her on a Voltaren gel with no relief of symptoms. I will start her on lidocaine patches. I would like to see her back in 2 weeks. Patient states that she continuously still get relief from her Stimulator. Patient has been instructed to contact the clinic with any concerns before the next appointment. Dr. Pina has reviewed this note and agrees with this plan of care. This note was dictated using voice recognition software and make contain errors or omissions. [facility] History Medical History: Reports:: Diabetes Mellitus Type 2, Gastroesophageal Reflux Disease(GERD), Hyperlipidemia, Hypertension Denies:: Cancer, Diabetes Mellitus Type 1, Internal Pacemaker, MRSA, Seizures *Have you ever received a pneumonia vaccine?: Yes *Have you received a flu vaccine this season?: No Other Medical History: Reports: Anemia, Arthritis, Thyroid Disease. Denies: Blood Transfusion Reaction Other Surgeries: Yes: No Previous Surgery, Angiogram, , Other (neuro stimulator). No: Pacemaker Amputation: No Fractures: No - *Social History Smoking Status: Current every day smoker Tobacco Type: cigarettes # Packs/Day (cigarettes): 1 #Yrs smoked (if former smoker): 24 Alcohol Intake: never Substance Use Type: denies use *Occupational Status:: employed Housing: house Household Members: spouse *Travel in the last 8 weeks: None Family Hx:: Unable to obtain
== END ==
PROVIDERS: Visit Provider Student in an Organized Health Care Education/Training Program
DX: M51.16 Intervertebral disc disorders with radiculopathy, lumbar region (principal)
CPT/HCPCS: 99212; G0463

== ENCOUNTER → 2021-07-07 10:58 | Outpatient (POV) | payer OTHER, SELFPAY ==
[2021-07-07 11:11] VITALS: BP 148/92; PULSE 78; RESP 18; TEMP 36.8; O2SAT 100; BMI 32.3
--- NOTE | 2021-07-07 12:50 | HMH.PAINSOAP ---
[facility] Pain Management SOAP Note Subjective:: Patient is a pleasant 46-year-old female who presents today for follow-up. Patient is currently being treated for degenerative disc disease of lumbar spine with lumbar radiculopathy symptoms. Patient has a [employer] spinal cord stimulator that was implanted about 4 months ago. Patient says that the stimulator is helping her significantly with her low back pain and radicular pains. When I last saw this patient, she was complaining of pain around her stimulator site. She says that she is very tender and feels like it is burning around her milliliters site. This has been hurting for couple months now. She has tried using Voltaren gel, compounding creams with minimal relief of symptoms. I ordered her a lidocaine patch but she developed some rashes after using the patch. She rates her pain today as 5 out of 10. Review of Systems: General: No recent weight changes, no fever, no sleep disturbances Respiratory: No cough, no shortness of air, no recurring pulmonary infections Cardiovascular/peripheral vascular: No chest pain, no palpitations, no edema, no shortness of breath Gastrointestinal: No new onset incontinence, normal bowel movements reported Genitourinary: No new onset incontinence Musculoskeletal: Back pain Psychiatric: [Normal mood/affect] Neurological: [Denies weakness in extremities], [denies balance issues] Objective:: Physical Exam: General: Alert and oriented x3, no acute distress, pleasant and cooperative, [on room air] Lungs: Respirations even and unlabored, symmetrical chest expansion Eyes: PERRL Musculoskeletal: Flexion and extension of lumbar [spine] somewhat guarded secondary to pain, [antalgic gait noted]; patient is very tender to touch around her spinal cord stimulator site and around her midline incision. There is no noticeable redness, swelling around the stimulator. Neurological: Speech clear, no gross sensory deficit Assessment:: Degenerative disc disease of the lumbar spine with lumbar radiculopathy symptoms Plan:: Patient had a spinal cord stimulator that was implanted 4 months ago. She has been doing well with the stimulator until about a month ago where she started to have pain around her spinal cord stimulator site and her midline incision. She has tried Voltaren gel and compounding creams with no relief of symptoms. I also started her on lidocaine patches but she had a reaction to it. I will schedule the patient with Dr. Pina for follow up. Patient has been instructed to contact the clinic with any concerns before the next appointment. Dr. Pina has reviewed this note and agrees with this plan of care. This note was dictated using voice recognition software and make contain errors or omissions. [facility] History Medical History: Reports:: Diabetes Mellitus Type 2, Gastroesophageal Reflux Disease(GERD), Hyperlipidemia, Hypertension Denies:: Cancer, Diabetes Mellitus Type 1, Internal Pacemaker, MRSA, Seizures *Have you ever received a pneumonia vaccine?: No *Have you received a flu vaccine this season?: No Other Medical History: Reports: Anemia, Arthritis, Thyroid Disease. Denies: Blood Transfusion Reaction Other Surgeries: Yes: No Previous Surgery, Angiogram, , Other (neuro stimulator). No: Pacemaker Amputation: No Fractures: No - *Social History Smoking Status: Current every day smoker Tobacco Type: cigarettes # Packs/Day (cigarettes): 1 #Yrs smoked (if former smoker): 24 Alcohol Intake: never Substance Use Type: denies use *Occupational Status:: unemployed Housing: house Household Members: spouse *Travel in the last 8 weeks: None Family Hx:: Unable to obtain
== END ==
PROVIDERS: Visit Provider Student in an Organized Health Care Education/Training Program
DX: M51.16 Intervertebral disc disorders with radiculopathy, lumbar region (principal)
CPT/HCPCS: 99212; G0463

== ENCOUNTER → 2021-07-08 15:29 | Day surgery (SDC) | payer OTHER, SELFPAY ==
[2021-07-08 12:08] VITALS: BP 158/85; PULSE 69; RESP 18; TEMP 36.4; O2SAT 92; BMI 32.3
[2021-07-08 12:37] VITALS: BP 158/85; PULSE 69; RESP 20; TEMP 36.4; O2SAT 92; BMI 32.3
[2021-07-08 12:45] VITALS: BP 160/91; PULSE 67; RESP 18; O2SAT 100
[2021-07-08 12:46] VITALS: BP 163/91; PULSE 65; RESP 18; O2SAT 100
[2021-07-08 13:21] VITALS: BP 144/84; PULSE 66; RESP 18; O2SAT 99
--- NOTE | 2021-07-08 13:51 | HMH.PMPROC ---
- Procedure Date: 07/08/21 Time: 13:51 Anesthesiologist:: Fabrice Pina MD Complications:: None Pre-procedure Diagnosis:: Myofascial pain lumbar paraspinous area around spinal cord stimulator generator Post-procedure Diagnosis:: Same Indications for Procedure:: This patient is a pleasant 46-year-old white female who we are treating for degenerative disc disease of lumbar spine with lumbar radiculopathy symptoms. She was implanted approximately 4 months ago. She is doing very well with her spinal cord stimulator. Recently she has had some increasing pain over her spinal cord stimulator generator in the lumbar paraspinous area. This is worsened over the last month. Trigger points are identified. We will plan on trigger point injections to her lumbar paraspinous area and around the spinal cord stimulator system generator. Procedure Details:: Trigger point injections x4 to right lumbar paraspinous area Informed consent was obtained risk and benefits of the procedure were explained to the patient. Patient was taken the procedure room. The area over the spinal cord stimulator system generator was prepped using ChloraPrep. 25-gauge needle was used and we injected each trigger point in and around the lumbar paraspinous muscles around the generator with bupivacaine 0.25% 3 mL and Depo-Medrol 10 mg. A total of 40 mg Depo-Medrol was used we injected superiorly, inferiorly, medially and laterally around the generator. The patient tolerated the procedure well with no complications. Plan and Disposition:: We will follow-up with her in 1 to 2 weeks. Will reevaluate symptoms at that time and plan on repeat injection if needed.
== END ==
LOC: SC.PAIN 11:38 → SDC 15:30
PROVIDERS: PCP Nurse Practitioner Family; Visit Provider Anesthesiology
DX: M79.18 Myalgia, other site (principal); M51.16 Intervertebral disc disorders with radiculopathy, lumbar region; E11.9 Type 2 diabetes mellitus without complications; K21.9 Gastro-esophageal reflux disease without esophagitis; E78.5 Hyperlipidemia, unspecified; I10 Essential (primary) hypertension; Z72.0 Tobacco use; Z88.0 Allergy status to penicillin; Z88.8 Allergy status to other drugs, medicaments and biological substances
CPT/HCPCS: 20553; 99212; G0463; J1040

== ENCOUNTER → 2021-08-04 13:37 | Outpatient (POV) | payer OTHER, SELFPAY ==
[2021-08-04 13:49] VITALS: BP 141/83; PULSE 80; RESP 18; TEMP 36.5; O2SAT 98; BMI 32.3
--- NOTE | 2021-08-04 16:22 | HMH.PAINSOAP ---
[facility] Pain Management SOAP Note Subjective:: Patient is a pleasant 46-year-old female who presents today for follow-up. Patient is currently being treated for degenerative disc disease of lumbar spine with lumbar radiculopathy symptoms. Patient has a [employer] spinal cord stimulator that was implanted about 5 months ago. Patient says that the stimulator has helped her significantly with her low back pain and radicular pains in the first 2 months of implant. For about 2 months now, patient has been having tenderness around the stimulator battery. We have tried several interventions such as Voltaren gel and compounding creams with minimal relief of symptoms. I have also tried lidocaine patches but she developed rashes after using the patch. Dr. Pina has tried trigger point injections around the battery that provided minimal relief as well. Patient continues to have this pain around her stimulator battery. Rates her pain as 5 out of 10 today. [facility] #[id number]. Review of Systems: General: No recent weight changes, no fever, no sleep disturbances Respiratory: No cough, no shortness of air, no recurring pulmonary infections Cardiovascular/peripheral vascular: No chest pain, no palpitations, no edema, no shortness of breath Gastrointestinal: No new onset incontinence, normal bowel movements reported Genitourinary: No new onset incontinence Musculoskeletal: Low back pain Psychiatric: [Normal mood/affect] Neurological: [Denies weakness in extremities], [denies balance issues] Objective:: Physical Exam: General: Alert and oriented x3, no acute distress, pleasant and cooperative, [on room air] Lungs: Respirations even and unlabored, symmetrical chest expansion Eyes: PERRL Musculoskeletal: Flexion and extension of [lumbar] [spine] somewhat guarded secondary to pain, [antalgic gait noted]; patient is tender to palpation around the right lumbar paraspinous and around her stimulator battery Neurological: Speech clear, no gross sensory deficit Assessment:: Degenerative disc disease lumbar spine with lumbar radiculopathy symptoms Myofascial pain Plan:: Patient has had significant relief with her low back and radiating pains because of the spinal cord stimulator. However, patient continues to have significant pain around her stimulator battery. Patient is a bit frustrated because of this pain. She has mentioned that she is wanting to get her stimulator explanted if she continues to fail other interventions. I have discussed the patient with one of the [employer] representatives. We will try to reach out with the patient to see if they can reprogram it so that it will also stimulate the space where the battery is. I also talk to Dr. Pina about the patient. He says that if the reprogramming does not work, we can consider moving her stimulator battery. Patient has been instructed to contact the clinic with any concerns before the next appointment. Dr. Pina has reviewed this note and agrees with this plan of care. This note was dictated using voice recognition software and make contain errors or omissions. [facility] History Medical History: Reports:: Gastroesophageal Reflux Disease(GERD), Hyperlipidemia, Hypertension Denies:: Cancer, Diabetes Mellitus Type 1, Diabetes Mellitus Type 2, Internal Pacemaker, MRSA, Seizures *Have you ever received a pneumonia vaccine?: No *Have you received a flu vaccine this season?: No Other Medical History: Reports: Anemia, Arthritis, Thyroid Disease. Denies: Blood Transfusion Reaction Other Surgeries: Yes: No Previous Surgery, Angiogram, , Other (neuro stimulator). No: Pacemaker Amputation: No Fractures: No - *Social History Smoking Status: Current every day smoker Tobacco Type: cigarettes # Packs/Day (cigarettes): 1 #Yrs smoked (if former smoker): 24 Alcohol Intake: never Substance Use Type: denies use *Occupational Status:: employed Housing: house Household Members: spouse *Travel in
== END ==
PROVIDERS: Visit Provider Student in an Organized Health Care Education/Training Program
DX: M51.16 Intervertebral disc disorders with radiculopathy, lumbar region (principal); M79.18 Myalgia, other site
CPT/HCPCS: 99212; G0463

== ENCOUNTER → 2021-10-01 10:28 | Outpatient (CLI) | payer OTHER, SELFPAY ==
--- NOTE | 2021-10-01 10:32 | XR_ITS ---
PROCEDURE INFORMATION: Exam: XR Left Foot Exam date and time: 10/01/2021 10:32 AM Age: 46 years old Clinical indication: Pain; Foot; Left; Additional info: Left foot pain TECHNIQUE: Imaging protocol: Radiologic exam of the Left foot. Views: 3 or more views. COMPARISON: CR XR FOOT WT BEARING LT 3V 12/24/2019 9:53 AM FINDINGS: Bones/joints: Hallux valgus deformity of the great toe. Lateral subluxation of the proximal phalanx of the great toe with respect to the 1st metatarsal. There is no evidence of acute fracture.There is no evidence of malalignment or dislocation. Soft tissues: Normal. IMPRESSION: 1. Hallux valgus deformity of the great toe. Lateral subluxation of the proximal phalanx of the great toe with respect to the 1st metatarsal. 2. There is no evidence of acute fracture.There is no evidence of malalignment or dislocation.
[2021-10-01 10:49] LABS: Basophils # 0.3 K/mm3 (0-0.2); Basophils % 2.6 % (0.1-2.0); Eosinophils # 0.1 K/mm3 (0.0-0.4); Eosinophils % 0.9 % (0.1-12.0); Hematocrit 40.4 % (37.0-47.0); Hemoglobin 12.7 g/dL (12.2-16.2); Lymphocytes # 3.4 K/mm3 (0.7-4.5); Lymphocytes % 32.5 % (10-50); Mean Corpuscular HGB Conc 31.5 g/dL (31.8-35.4); Mean Corpuscular Hemoglobin 26.9 pg (27.0-31.2); Mean Corpuscular Volume 85.3 fl (81-99); Monocytes # 0.5 K/mm3 (0.1-1.0); Neutrophils # 6.2 K/mm3 (1.8-7.8); Platelet Count 251 K/mm3 (142-424); Red Blood Count 4.74 M/mm3 (4.20-5.40); Red Cell Distribution Width 17.6 % (11.5-17.5); White Blood Count 10.4 K/mm3 (4.8-10.8)
[2021-10-01 11:03] LABS: Hemoglobin A1C 5.4 % (4.0-6.0)
[2021-10-01 11:07] LABS: Alanine Aminotransferase 23 U/L (12-78); Albumin Level 3.8 g/dl (3.5-5.0); Anion Gap 8.5 mEq/L (5-15); Aspartate Amino Transferase 26 U/L (14-36); Bilirubin,Total 0.3 mg/dl (0.2-1.3); Blood Urea Nitrogen 11 mg/dl (7-17); Carbon Dioxide 29 mmol/L (22.0-30.0); Chloride 105 mmol/L (98-107); Estimated Glomerular Filt Rate 78 ml/min (>60); GFR (African American) 94 ML/MIN (>60); Glucose 93 mg/dl (74-100); Potassium 3.5 mmoL/L (3.5-5.1); Sodium 139 mmol/L (136-145); Total Protein,Serum 6.4 g/dl (6.3-8.2)
[2021-10-01 11:08] LABS: Albumin/Globulin Ratio 1.5 (1.1-1.8); Alkaline Phosphatase 51 U/L (38-126); Chol/HDL Ratio 4.9 (1-3.5); Cholesterol 168 mg/dl (140-200); Globulin 2.6 g/dL (1.3-3.2); HDL Cholesterol 34 mg/dl (40-60); Triglycerides 174 mg/dl (30-150); VLDL Cholesterol 35 mg/dL (0-40)
[2021-10-01 11:18] LABS: Direct LDL Cholesterol 98.35 mg/dL (100-129)
[2021-10-01 11:24] LABS: 25-OH Vitamin D, Total 18.9 ng/mL (30-100)
[2021-10-01 11:25] LABS: T4 (Thyroxine) 2.8 ug/dl (5.53-11.0)
== END ==
PROVIDERS: PCP Nurse Practitioner Family; Visit Provider Nurse Practitioner Family
DX: M79.672 Pain in left foot (principal); I10 Essential (primary) hypertension; E11.9 Type 2 diabetes mellitus without complications; Z79.84 Long term (current) use of oral hypoglycemic drugs
CPT/HCPCS: 36415; 73630; 80053; 80061; 82306; 83036; 84436; 84443; 85025

== ENCOUNTER → 2021-10-05 16:31 | Outpatient (CLI) | payer OTHER, SELFPAY ==
[2021-10-05 15:07] LABS: T4 (Thyroxine) 6.3 ug/dl (5.53-11.0)
== END ==
PROVIDERS: Visit Provider Nurse Practitioner Family
DX: E03.9 Hypothyroidism, unspecified (principal)
CPT/HCPCS: 84436; 84443

== ENCOUNTER 2021-12-07 20:43 | Emergency (ER) | payer OTHER, SELFPAY ==
[2021-12-07 20:56] VITALS: BP 147/96; PULSE 92; RESP 16; TEMP 36.9; O2SAT 100; BMI 29.8
--- NOTE | 2021-12-07 21:06 | XR_ITS ---
PROCEDURE INFORMATION: Exam: XR Thoracic Spine Exam date and time: 12/07/2021 9:16 PM Age: 46 years old Clinical indication: Pain in thoracic spine; Prior surgery; Surgery date: 6+ months; Surgery type: Stimulator February 2021; Patient HX: PT states she pulled on something and felt a pop in her back; Additional info: Back pain, neurostimulator eval TECHNIQUE: Imaging protocol: Radiologic exam of the thoracic spine. Views: 2 views. COMPARISON: CR XR LUMBAR SPINE 2-3V 12/07/2021 9:15 PM FINDINGS: Tubes, catheters and devices: Neural stimulator wires tips project within the central canal at the level of T8. Bones/joints: Normal anatomic alignment and preserved thoracic kyphosis. Grossly preserved intervertebral disc spaces and vertebral body heights. Tiny multilevel anterior osteophytes. No acute fracture, dislocation, or aggressive skeletal lesion. Spinal canal is completely patent. Soft tissues: Unremarkable. Other findings: No acute findings in the visualized chest. IMPRESSION: 1. Neural stimulator wires within the central canal at the level of T8. No kinks or discontinuities. 2. Minimal degenerative changes without acute skeletal pathology.
--- NOTE | 2021-12-07 21:06 | XR_ITS ---
PROCEDURE INFORMATION: Exam: XR Lumbosacral Spine Exam date and time: 12/07/2021 9:15 PM Age: 46 years old Clinical indication: Low back pain; Prior surgery; Surgery date: 6+ months; Surgery type: Stimulator, last February 2021; Patient HX: PT states she pulled on something and felt a pop in her back; Additional info: Back pain/neurostimulator eval TECHNIQUE: Imaging protocol: Radiologic exam of the lumbosacral spine. Views: 2 or 3 views. COMPARISON: CT ABDOMEN PELVIS WO/W CON 07/09/2020 11:46 AM FINDINGS: Tubes, catheters and devices: Neural stimulator circuit in the dorsal lumbar soft tissues. Neural stimulator wires project throughout the subcutaneous tissues and enter the central canal at the level of L1-L2. They course cranially through the central canal without kinks or discontinuities to the neural stimulator wires. Bones/joints: Decreased intervertebral disc space at L4-L5 and L5-S1 with associated endplate sclerosis and tiny anterior osteophytes. Remainder of the intervertebral disc spaces are well preserved. Spinal canal is patent. Preserved vertebral body heights. No acute fracture, dislocation, or aggressive skeletal lesion. Mild facet joint hypertrophy. Soft tissues: No acute soft tissue findings. Gastrointestinal tract: Nonobstructive bowel gas pattern. IMPRESSION: 1. Neural stimulator circuit in the dorsal lumbar soft tissues. Neural stimulator wires project throughout the subcutaneous tissues and enter the central canal at the level of L1-L2. They course cranially through the central canal without kinks or discontinuities. 2. Mild degenerative changes at L4-L5 and L5-S1 without acute skeletal pathology.
--- NOTE | 2021-12-07 21:23 | HMH.EDGENADL ---
Discharge Plan Disposition Chief Complaint: PAIN Prescriptions Prescriptions: No Action omeprazole 20 mg capsule,delayed release(DR/EC) 20 mg PO BID Qty: 180 0RF methylprednisolone [Medrol (Mert)] 4 mg tablets,dose pack See Rx Instructions PO PER PKG DIR Qty: 21 0RF Rx Instructions: PO PER PKG DIR cyclobenzaprine 10 mg tablet 10 mg PO DAILY Qty: 90 0RF ferrous sulfate 325 mg (65 mg iron) tablet 325 mg PO DAILY Qty: 90 0RF topiramate 100 mg tablet 100 mg PO BID Qty: 180 0RF metformin 500 mg tablet extended release 24 hr 500 mg PO DAILY Qty: 90 0RF levothyroxine [Euthyrox] 150 mcg tablet 150 mcg PO DAILY Qty: 30 2RF Rx Instructions: Rising TSH lisinopril 10 mg tablet See Rx Instructions .ROUTE .COMPLEX Qty: 90 1RF Dose Instruction: TAKE 1 TABLET BY MOUTH ONCE DAILY FOR HIGH BLOOD PRESSURE Rx Instructions: TAKE 1 TABLET BY MOUTH ONCE DAILY FOR HIGH BLOOD PRESSURE metoprolol succinate 50 mg tablet extended release 24 hr See Rx Instructions .ROUTE .COMPLEX Qty: 90 1RF Dose Instruction: TAKE 1 TABLET BY MOUTH ONCE DAILY FOR HEART DISEASE Rx Instructions: TAKE 1 TABLET BY MOUTH ONCE DAILY FOR HEART DISEASE amlodipine 10 mg tablet See Rx Instructions .ROUTE .COMPLEX Qty: 180 1RF Dose Instruction: TAKE 1 TABLET BY MOUTH TWICE DAILY FOR HIGH BLOOD PRESSURE Rx Instructions: TAKE 1 TABLET BY MOUTH TWICE DAILY FOR HIGH BLOOD PRESSURE hydrochlorothiazide 25 mg tablet See Rx Instructions .ROUTE .COMPLEX Qty: 30 1RF Dose Instruction: TAKE 1 TABLET BY MOUTH ONCE DAILY FOR FLUID Rx Instructions: TAKE 1 TABLET BY MOUTH ONCE DAILY FOR FLUID Referrals Follow up/Referrals: Charbel Spencer APRN [Primary Care Provider] - See instructions Clinical Impressions Clinical Impression: Low back pain Instructions Patient Instructions: DI for Acute Pain -- Adult Discharge ED Provider: Rob Wayne General Adult HPI General Chief complaint: PAIN Stated complaint: AO 12/07@1600@home injured back Time Seen by Provider: 12/07/21 21:23 Mode of Arrival: Ambulatory Source of Information: Patient and Medical Record Limitations: No Limitations Description of Symptoms (Recalled from ER Triage Doc. by RN): PT REPORTS THAT SHE WAS PULLING A GARBAGE BAG OUT OF HER CAR AND SHE BEGAN HAVING LOW BACK PAIN. PT REPORTS SHOCKING SENSATION IN TWO AREAS WHERE HER NEUROSTIMULATOR. PT CALLED [employer] AND WAS TOLD TO TURN OFF HER STIMULATOR AND GO TO ER FOR EVALUATION. History of Present Illness HPI narrative: traction injury this afternoon with pain and shocking sensation - hx of stimulator - no cauda equina sx Onset (ago): hour(s) Location: back Severity: moderate Treatments prior to arrival: none Related Data Previous Rx's Medication Instructions Recorded cyclobenzaprine 10 mg tablet 10 mg PO DAILY back spasms #90 tabs 08/11/21 ferrous sulfate 325 mg (65 mg 325 mg PO DAILY Supplement #90 tabs 08/11/21 iron) tablet metformin 500 mg tablet,extended 500 mg PO DAILY Diabetes #90 tabs 08/11/21 release 24 hr topiramate 100 mg tablet 100 mg PO BID headaches #180 tabs 08/11/21 methylprednisolone 4 mg tablets in See Rx Instructions PO PER PKG DIR 09/27/21 a dose pack (Medrol (Mert)) #21 tabs omeprazole 20 mg capsule,delayed 20 mg PO BID stomach #180 caps 09/27/21 release levothyroxine 150 mcg tablet 150 mcg PO DAILY #30 tabs 10/19/21 (Euthyrox) amlodipine 10 mg tablet See Rx Instructions .Route 10/24/21 .COMPLEX #180 tabs hydrochlorothiazide 25 mg tablet See Rx Instructions .Route 10/24/21 .COMPLEX #30 tabs lisinopril 10 mg tablet See Rx Instructions .Route 10/24/21 .COMPLEX #90 tabs metoprolol succinate 50 mg See Rx Instructions .Route 10/24/21 tablet,extended release 24 hr .COMPLEX #90 tabs Allergies Allergy/AdvReac Type Severity Reaction Status Date / Time bupropion Allergy hives, Verified
[2021-12-07 22:00] VITALS: BP 137/89; PULSE 81; O2SAT 100
[2021-12-07 22:02] LABS: Urine Pregnancy, HCG Qual. Negative (Negative)
[2021-12-07 22:34] VITALS: BP 115/44; PULSE 83; RESP 16; TEMP 36.7; O2SAT 98
== END 2021-12-07 22:36 | disposition home or self-care (01) ==
LOC: ER 20:53
PROVIDERS: Emergency Provider Emergency Medicine; PCP Nurse Practitioner Family
DX: M54.50 Low back pain, unspecified (principal)
CPT/HCPCS: 72070; 72100; 81025; 96372; 99212; G0463

== ENCOUNTER → 2021-12-08 07:56 | Outpatient (POV) | payer OTHER, SELFPAY ==
[2021-12-08 08:14] VITALS: BP 146/99; PULSE 90; RESP 18; TEMP 36.9; O2SAT 99; BMI 29.8
--- NOTE | 2021-12-08 08:30 | EXP.PAIN.SOA ---
[facility] Pain Management SOAP Note Subjective:: Patient is a pleasant 46-year-old who presents today for follow-up. We are currently treating the patient for degenerative disc disease of lumbar spine with lumbar radiculopathy symptoms. Today she rates her pain a 4 out of 10 and states it is primarily around her generator site and mid back. Patient did present to the ER yesterday due to pain. She states imaging was done and nothing seemed out of place. She has since turned off her stimulator since yesterday around 430. Patient did states she may have pulled a muscle around the site for all she knows however she is in pain almost continuously. Patient denies any new trauma or injury to the site. Patient states the pain can be a throbbing to a sharp pain that is aggravated by any movement. She states that she has lost 40 pounds over the last several months and the generator seems to move more frequently causing pain. She states initially she did get significant improvement of her symptoms following implant of the SCS. We have tried trigger point injections around the site however this provided minimal improvement of her symptoms. She has tried multiple topicals including Voltaren gel, compounding cream, lidocaine patches with no improvement of her symptoms. Patient states heat and ice only aggravate the pain. Patient has been seen by a [employer] representative multiple times to reprogram however this is not provided significant improvement of her symptoms. Patient is not on any scheduled medications. Her Jb is [id number]. It has been reviewed and appropriate. Review of Systems: General: No recent weight changes, no fever, no sleep disturbances Respiratory: No cough, no shortness of air, no recurring pulmonary infections Cardiovascular/peripheral vascular: No chest pain, no palpitations, no edema, no shortness of breath Gastrointestinal: No new onset incontinence, normal bowel movements reported Genitourinary: No new onset incontinence Musculoskeletal: Low back pain Psychiatric: [Normal mood/affect] Neurological: [Denies weakness in extremities], [denies balance issues] Objective:: Physical Exam: General: Alert and oriented x3, no acute distress, pleasant and cooperative Lungs: Respirations even and unlabored, symmetrical chest expansion Eyes: PERRL Musculoskeletal: Flexion and extension of lumbar [spine] somewhat guarded secondary to pain, [antalgic gait noted] Neurological: Speech clear, no gross sensory deficit Assessment:: Degenerative disc disease of lumbar spine with lumbar radiculopathy symptoms Plan:: Patient continues to have significant pain around her generator and lead to anchor sites. We have attempted multiple reprogramming of her leads by [employer] representatives with minimal improvement of symptoms. New imaging from ER visit yesterday does appear to show lead migration per Dr. Pina. We have contacted [employer] representative to try and reprogram based off of this imaging. Patient will follow-up in clinic with Dr. Pina. Patient will return to clinic for follow-up and reevaluation of her symptoms on December [address] Pina. Patient has been instructed to contact the clinic with any concerns before the next appointment. Dr. Pina has reviewed this note and agrees with this plan of care. This note was dictated using voice recognition software and make contain errors or omissions. PFSH PFSH Medical History Chest pain COPD (chronic obstructive pulmonary disease) Diabetes mellitus, type 2 Pre-diabetes Tobacco use Surgical History (Updated 12/07/21 @ 21:22 by Nati Woods RN) Previous back surgery Social History (Updated 12/07/21 @ 22:32 by Rob Wayne MD) Smoking Status: Current every day smoker tobacco type: cigarettes packs per day: 1 second hand exposure: No alcohol intake: never substance use type: denies use current occupational status: employed Travel in the last 8 weeks: None household member
== END ==
PROVIDERS: PCP Emergency Medicine; Visit Provider Nurse Practitioner Family
DX: M51.16 Intervertebral disc disorders with radiculopathy, lumbar region (principal)
CPT/HCPCS: 99212; G0463

== ENCOUNTER → 2022-01-03 10:29 | Outpatient (POV) | payer OTHER, SELFPAY ==
[2022-01-03 10:40] VITALS: BP 152/91; PULSE 83; RESP 20; TEMP 36.7; O2SAT 99; BMI 29.8
--- NOTE | 2022-01-03 11:07 | EXP.PAIN.SOA ---
[facility] Pain Management SOAP Note Subjective:: This patient is a pleasant 46-year-old female that comes to our clinic today for follow-up visit. We are currently treating the patient for degenerative disc disease lumbar spine multilevels. Lumbar radiculopathy. Today she rates her pain 8/10. Patient has lumbar spinal cord stimulator. There is been difficulty attempting to communicate with the [employer] for reprogramming. However, patient's main complaint today is pain over the bilateral sacroiliac joints. She also has pain surrounding the battery pack for the spinal cord stimulator. However, I am suspicious that the battery pack just happens to be over the right SI joint. She has extreme point tenderness over the bilateral SI joints upon examination. Patient has difficulty transitioning from sitting to standing. Patient states she has been taking Tylenol and ibuprofen with little relief. She has positive bilateral sacroiliac joint compression test. Positive Dave's test bilaterally. Patient has increased pain with lumbar flexion. I discussed bilateral sacroiliac joint injections. She wishes to proceed Objective:: Patient is awake alert [place] x3. In no acute distress. Flexion-extension lumbar spine very guarded secondary to pain. Deep tendon reflexes upper lower extremities normal. Motor strength upper and lower extremities normal. There is no gross sensory deficit. Gait is normal. Assessment:: Degenerative disc disease lumbar spine multilevels. Lumbar radiculopathy symptoms. Bilateral sacroiliitis. Plan:: We will attempt approval from insurance for bilateral sacroiliac joint injection. This would be both diagnostic as well as potentially therapeutic. Again, I discussed in detail with the patient the risk versus benefits. I answered her questions. She wishes to proceed. [facility] Medical History Chest pain COPD (chronic obstructive pulmonary disease) Diabetes mellitus, type 2 Pre-diabetes Tobacco use Surgical History (Updated 12/07/21 @ 21:22 by Nati Woods RN) Previous back surgery Social History (Updated 12/07/21 @ 22:32 by Rob Wayne MD) Smoking Status: Current every day smoker tobacco type: cigarettes packs per day: 1 second hand exposure: No alcohol intake: never substance use type: denies use current occupational status: employed Travel in the last 8 weeks: None household members: spouse housing: house current occupation: [employer] current occupational exposures/hazards: No caffeine: No
== END ==
PROVIDERS: PCP Nurse Practitioner Family; Visit Provider Nurse Anesthetist, Certified Registered
DX: M51.16 Intervertebral disc disorders with radiculopathy, lumbar region (principal); M46.1 Sacroiliitis, not elsewhere classified
CPT/HCPCS: 99212; G0463

== ENCOUNTER 2022-01-17 10:25 | Day surgery (SDC) | payer OTHER, SELFPAY ==
[2022-01-17 10:40] VITALS: BP 135/88; PULSE 82; RESP 20; TEMP 36.4; O2SAT 100; BMI 29.8
[2022-01-17 10:59] VITALS: BP 139/79; PULSE 76; RESP 18; O2SAT 98
[2022-01-17 11:03] VITALS: BP 141/82; PULSE 70; RESP 20; O2SAT 99
--- NOTE | 2022-01-17 11:03 | P.PCN_ITS ---
Procedure Date: 01/17/22 Time: 11:03 Anesthesiologist:: Sami Harris CRNA Complications:: None Pre-procedure Diagnosis:: Bilateral sacroiliitis Post-procedure Diagnosis:: Same. Indications for Procedure:: Patient is a pleasant 46-year-old female that comes today for bilateral SI joint injections. Patient has extreme point tenderness over the bilateral SI joints. She rates her pain 8/10 Procedure Details:: Procedure: Bilateral sacroiliac joint injections under fluoroscopy Informed consent was obtained and the risks and benefits of the procedure were explained to the patient.~ The patient was taken to the procedure room and noninvasive monitors were placed including a noninvasive blood pressure cuff and pulse oximeter.~ The patient was placed prone on the procedure table. Both hips were cleansed using Betadine as a cleansing solution. C-arm fluoroscopy was used to view the right sacroiliac joint.~ The skin and subcutaneous tissues were anesthetized using lidocaine 1.5% and a 25-gauge needle.~ After this, a 22-gauge spinal needle was inserted under fluoroscopic guidance into the inferior aspect of the right sacroiliac joint.~ Omnipaque dye was injected and good spread was seen throughout the joint.~ After this, approximately 5 mL of bupivacaine, 0.25% and Depo-Medrol, 40 mg was incrementally injected into the right sacroiliac joint. We then moved to the left sacroiliac joint.~ The skin and subcutaneous tissues were anesthetized using lidocaine 1.5% and a 25-gauge needle.~ After this, a 22- gauge spinal needle was inserted under fluoroscopic guidance into the inferior aspect of the left sacroiliac joint.~ Omnipaque dye was injected and good spread was seen throughout the joint. After this, approximately 5 mL of bupivacaine, 0.25% and Depo-Medrol, 40 mg was incrementally injected into the left sacroiliac joint.~ The patient tolerated the procedure well with no complications. The patient was observed in the Pain Clinic and then was discharged home neurologically intact. Plan and Disposition:: Patient was discharged without incident.
== END 2022-01-17 11:04 | disposition home or self-care (01) ==
PROVIDERS: PCP Nurse Practitioner Family; Visit Provider Nurse Anesthetist, Certified Registered
DX: M46.1 Sacroiliitis, not elsewhere classified (principal); M51.16 Intervertebral disc disorders with radiculopathy, lumbar region; Z72.0 Tobacco use
CPT/HCPCS: 27096; G0260; J1030

== ENCOUNTER → 2022-01-31 14:20 | Outpatient (POV) | payer OTHER, SELFPAY ==
[2022-01-31 14:49] VITALS: BP 147/86; PULSE 84; RESP 18; TEMP 36.3; O2SAT 100; BMI 29.8
--- NOTE | 2022-01-31 15:19 | EXP.PAIN.SOA ---
[facility] Pain Management SOAP Note Subjective:: Patient is a pleasant 46-year-old female who presents today for follow-up of bilateral SI injections on 01/17/2022. We are currently treating the patient for degenerative disc disease lumbar spine multilevels with lumbar radiculopathy symptoms, bilateral sacroiliitis. Today the patient states that she has had about 25% relief of her symptoms following this injection and lasted approximately a week to week and a half. Today the patient rates her pain a 4 out of 10. Patient denies any new trauma or injury. Patient denies any change to location or type of pain she experiences. Patient does have a [employer] spinal cord stimulator that was recently reprogrammed. Patient states that the program currently is doing well. Patient has lost significant amount of weight and does feel like her battery pack for her spinal cord stimulator has moved and is tender around the site. Patient does take [id number] Tylenol or ibuprofen occasionally that provides some relief of her symptoms. Patient is not on any scheduled medications. Her Jb is [id number]. It is been reviewed and appropriate. Review of Systems: General: No recent weight changes, no fever, no sleep disturbances Respiratory: No cough, no shortness of air, no recurring pulmonary infections Cardiovascular/peripheral vascular: No chest pain, no palpitations, no edema, no shortness of breath Gastrointestinal: No new onset incontinence, normal bowel movements reported Genitourinary: No new onset incontinence Musculoskeletal: Low back pain Psychiatric: [Normal mood/affect] Neurological: [Denies weakness in extremities], [denies balance issues] Objective:: Physical Exam: General: Alert and oriented x3, no acute distress, pleasant and cooperative Lungs: Respirations even and unlabored, symmetrical chest expansion Eyes: PERRL Musculoskeletal: Flexion and extension of lumbar [spine] somewhat guarded secondary to pain, [antalgic gait noted] Neurological: Speech clear, no gross sensory deficit Assessment:: Degenerative disc disease of lumbar spine multilevels with lumbar radiculopathy symptoms, sacroiliitis Plan:: Patient continues to have significant pain and her low back that radiates into her bilateral lower extremities. Patient does have limited range of motion of her lumbar spine during today's visit. I have discussed with the patient that she may benefit from a lumbar epidural steroid injection. Risk and benefits were discussed with the patient. She would like to proceed forward with this option. Patient is not on any blood thinners. We will schedule her for a lumbar epidural steroid injection at L4-L5. Patient has been instructed to contact the clinic with any concerns before the next appointment. Dr. Pina has reviewed this note and agrees with this plan of care. This note was dictated using voice recognition software and make contain errors or omissions. [facility] Medical History Chest pain COPD (chronic obstructive pulmonary disease) Diabetes mellitus, type 2 Pre-diabetes Tobacco use Surgical History Previous back surgery Social History (Updated 01/17/22 @ 10:44 by Tiffany Ford RN) Smoking Status: Current every day smoker tobacco type: cigarettes packs per day: 1 second hand exposure: No alcohol intake: never substance use type: denies use current occupational status: employed Travel in the last 8 weeks: None household members: spouse housing: house current occupation: [employer] current occupational exposures/hazards: No caffeine: No
== END ==
PROVIDERS: PCP Nurse Practitioner Family; Visit Provider Nurse Practitioner Family
DX: M51.16 Intervertebral disc disorders with radiculopathy, lumbar region (principal); M46.1 Sacroiliitis, not elsewhere classified; Z79.899 Other long term (current) drug therapy; Z72.0 Tobacco use
CPT/HCPCS: 99212; G0463

== ENCOUNTER → 2022-02-01 13:17 | Outpatient (CLI) | payer OTHER, SELFPAY ==
[2022-02-01 17:09] LABS: Adenovirus,PCR Not Detected (NotDetected); Bordetella Pertussis Not Detected (NotDetected); Chlamydophila Pneumoniae, PCR Not Detected (NotDetected); Coronavirus 19, PCR Not Detected (NotDetected); Coronavirus 229E Not Detected (NotDetected); Coronavirus NL63 Not Detected (NotDetected); Coronavirus OC43 Not Detected (NotDetected); Coronovirus HKU1,PCR Not Detected (NotDetected); Human Metapneumovirus Not Detected (NotDetected); Influenza A, PCR Not Detected (NotDetected); Influenza AH1, 2009 Not Detected (NotDetected); Influenza AH1, PCR Not Detected (NotDetected); Influenza AH3,PCR Not Detected (NotDetected); Influenza B, PCR Not Detected (NotDetected); Mycoplasma Pneumoniae, PCR Not Detected (NotDetected); Parainfluenza 1, PCR Not Detected (NotDetected); Parainfluenza 2, PCR Not Detected (NotDetected); Parainfluenza 3, PCR Not Detected (NotDetected); Parainfluenza 4, PCR Not Detected (NotDetected); Respiratory Syncytial Virus Not Detected (NotDetected); Rhinovirus/Enterovirus Not Detected (NotDetected)
== END ==
PROVIDERS: PCP Nurse Practitioner Family; Visit Provider Nurse Practitioner Family
DX: J01.00 Acute maxillary sinusitis, unspecified (principal); R51.9 Headache, unspecified; R05.9 Cough, unspecified; J02.9 Acute pharyngitis, unspecified; Z72.0 Tobacco use
CPT/HCPCS: 87581; 87632; 87798; C9803; U0003; U0005

== ENCOUNTER 2022-04-29 12:43 | Emergency (ER) | payer OTHER, SELFPAY ==
[2022-04-29 12:50] VITALS: BP 163/94; PULSE 90; RESP 20; TEMP 36.9; O2SAT 100; BMI 28.9
[2022-04-29 13:11] VITALS: BP 163/94; PULSE 90; RESP 20; TEMP 36.9; O2SAT 100
--- NOTE | 2022-04-29 13:12 | EXP.UTC ---
Discharge Plan Disposition Patient Disposition: Home, Self-Care Condition: Good Prescriptions Prescriptions: New mupirocin 2 % ointment 1 applic topical BID Qty: 15 0RF No Action omeprazole 20 mg capsule,delayed release(DR/EC) 20 mg PO BID Qty: 180 0RF amoxicillin-pot clavulanate 875-125 mg tablet 1 tab PO BID 10 Days Qty: 20 0RF prednisone 20 mg tablet 20 mg PO BID 5 Days Qty: 10 0RF benzonatate 100 mg capsule 100 mg PO TID PRN (Reason: cough) Qty: 30 0RF cyclobenzaprine 10 mg tablet 10 mg PO DAILY Qty: 90 0RF ferrous sulfate 325 mg (65 mg iron) tablet 325 mg PO DAILY Qty: 90 0RF metformin 500 mg tablet extended release 24 hr 500 mg PO DAILY Qty: 90 0RF hydrochlorothiazide 25 mg tablet See Rx Instructions .ROUTE .COMPLEX Qty: 90 0RF Dose Instruction: TAKE 1 TABLET BY MOUTH ONCE DAILY FOR FLUID Rx Instructions: TAKE 1 TABLET BY MOUTH ONCE DAILY FOR FLUID topiramate 100 mg tablet See Rx Instructions .ROUTE .COMPLEX Qty: 180 0RF Dose Instruction: TAKE 1 TABLET BY MOUTH TWICE DAILY FOR HEADACHE Rx Instructions: TAKE 1 TABLET BY MOUTH TWICE DAILY FOR HEADACHE metoprolol succinate 50 mg tablet extended release 24 hr See Rx Instructions .ROUTE .COMPLEX Rx Instructions: TAKE 1 TABLET BY MOUTH ONCE DAILY FOR HEART DISEASE amlodipine 10 mg tablet See Rx Instructions .ROUTE .COMPLEX Rx Instructions: TAKE 1 TABLET BY MOUTH TWICE DAILY FOR HIGH BLOOD PRESSURE lisinopril 10 mg tablet See Rx Instructions .ROUTE .COMPLEX Rx Instructions: TAKE 1 TABLET BY MOUTH ONCE DAILY FOR HIGH BLOOD PRESSURE levothyroxine [Euthyrox] 150 mcg tablet 150 mcg PO DAILY Rx Instructions: Rising TSH Referrals Follow up/Referrals: Charbel Spencer APRN [Primary Care Provider] - See instructions Activity Restrictions/Add. Instructions Additional Instructions/Restrictions: keep area clean and dry apply ointment return or follow up with pcp if worsening Clinical Impressions Clinical Impression: Abrasion hip/leg, Hematoma Instructions Patient Instructions: DI for Hematoma (Bruise), DI for Abrasion Discharge ED Provider: Jesenia ([facility] HPI General Stated complaint: AO RT leg lesion 04/28 @home Mode of Arrival: Ambulatory Source of Information: Patient Limitations: No Limitations Time Seen by Provider: 04/29/22 13:12 Description of Symptoms (Recalled from Triage Doc. by RN): PATIENT STATES SHE HIT THE BACK OF HER RIGHT LOWER LEG WITH A CAR DOOR YESTERDAY. ABRASION NOTED TO RIGHT CALF WITH REDNESS AND SWELLING HEENT Symptoms (Recalled from RN notes): No Resp Symptoms (Recalled from RN notes): No Skin Symptoms (Recalled from RN notes): Yes MS Symptoms (Recalled from RN notes): No Functional Status (Recalled from RN notes): WNL History of Present Illness Provider Complaint: 46 yr old female presents for rt lower leg pain and abrasion. pt states last pm she was shutting her car door and didnt realize her leg was in the way. Related Data Home Medications Medication Instructions Recorded Confirmed amlodipine 10 mg tablet See Rx Instructions .Route 12/08/21 02/01/22 .COMPLEX BLOOD PRESSURE levothyroxine 150 mcg tablet 150 mcg PO DAILY THYROID 12/08/21 02/01/22 (Euthyrox) lisinopril 10 mg tablet See Rx Instructions .Route 12/08/21 02/01/22 .COMPLEX BLOOD PRESSURE metoprolol succinate 50 mg See Rx Instructions .Route 12/08/21 02/01/22 tablet,extended release 24 hr .COMPLEX BLOOD PRESSURE Previous Rx's Medication Instructions Recorded cyclobenzaprine 10 mg tablet 10 mg PO DAILY back spasms #90 tabs 08/11/21 ferrous sulfate 325 mg (65 mg 325 mg PO DAILY Supplement #90 tabs 08/11/21 iron) tablet metformin 500 mg tablet,extended 500 mg PO DAILY Diabetes #90 tabs 08/11/21 release 24 hr omeprazole 20 mg capsule,delayed 20 mg PO BID stomach #180 caps 09/27/21 release amoxicillin 875
--- NOTE | 2022-04-29 13:14 | XR_ITS ---
PROCEDURE INFORMATION: Exam: XR Right Tibia and Fibula Exam date and time: 04/29/2022 1:17 PM Age: 46 years old Clinical indication: Pain and injury or trauma; Other: Corner of car door hit back of RT lower leg; Right; Additional info: Shut leg in car door TECHNIQUE: Imaging protocol: Radiologic exam of the Right tibia and fibula. Views: 2 views. COMPARISON: CR XR FOOT WT BEARING RT 3V 12/24/2019 9:53 AM FINDINGS: Bones/joints: No visible fracture or dislocation. Soft tissues: Normal. IMPRESSION: No visible fracture or dislocation.
== END 2022-04-29 13:45 | disposition home or self-care (01) ==
PROVIDERS: Emergency Provider Nurse Practitioner Family; PCP Nurse Practitioner Family
DX: S80.811A Abrasion, right lower leg, initial encounter; S80.11XA Contusion of right lower leg, initial encounter; W20.8XXA Other cause of strike by thrown, projected or falling object, initial encounter
CPT/HCPCS: 73590; 99212; 99213; G0463

== ENCOUNTER → 2022-08-07 09:46 | Outpatient (POV) | payer OTHER, SELFPAY ==
--- NOTE | 2022-08-07 10:26 | EXP.PAIN.SOA ---
[facility] Pain Management SOAP Note Subjective:: Patient is a pleasant 46-year-old female who presents today for follow-up. We are currently treating the patient for degenerative disc disease of lumbar spine with lumbar radiculopathy symptoms multilevel, bilateral sacroiliitis. Today she rates her pain a 6 out of 10. Patient denies any new trauma or injury. She states her pain is all around her low back and describes it as a aching, throbbing sensation with sensitivity to touch. Patient states that she did recently go to her family doctor who thought it could possibly be a seroma. Patient has had significant weight loss and feels like her spinal cord stimulator is more tender at that site. Patient does state that she feels like her programming is doing well. Patient is not on any scheduled medications. Her Jb is [id number]. Its been reviewed and appropriate. Review of Systems: General: No recent weight changes, no fever, no sleep disturbances Respiratory: No cough, no shortness of air, no recurring pulmonary infections Cardiovascular/peripheral vascular: No chest pain, no palpitations, no edema, no shortness of breath Gastrointestinal: No new onset incontinence, normal bowel movements reported Genitourinary: No new onset incontinence Musculoskeletal: Low back pain Psychiatric: [Normal mood/affect] Neurological: [Denies weakness in extremities], [denies balance issues] Objective:: Physical Exam: General: Alert and oriented x3, no acute distress, pleasant and cooperative Lungs: Respirations even and unlabored, symmetrical chest expansion Eyes: PERRL Musculoskeletal: Flexion and extension of lumbar [spine] somewhat guarded secondary to pain, [antalgic gait noted] point tenderness noted around lumbar spine at her SCS anchor site Neurological: Speech clear, no gross sensory deficit PROCEDURE INFORMATION: Exam: XR Lumbosacral Spine Exam date and time: 12/07/2021 9:15 PM Age: 46 years old Clinical indication: Low back pain; Prior surgery; Surgery date: 6+ months; Surgery type: Stimulator, last February 2021; Patient HX: PT states she pulled on something and felt a pop in her back; Additional info: Back pain/neurostimulator eval TECHNIQUE: Imaging protocol: Radiologic exam of the lumbosacral spine. Views: 2 or 3 views. COMPARISON: CT ABDOMEN PELVIS WO/W CON 07/09/2020 11:46 AM FINDINGS: Tubes, catheters and devices: Neural stimulator circuit in the dorsal lumbar soft tissues. Neural stimulator wires project throughout the subcutaneous tissues and enter the central canal at the level of L1-L2. They course cranially through the central canal without kinks or discontinuities to the neural stimulator wires. Bones/joints: Decreased intervertebral disc space at L4-L5 and L5-S1 with associated endplate sclerosis and tiny anterior osteophytes. Remainder of the intervertebral disc spaces are well preserved. Spinal canal is patent. Preserved vertebral body heights. No acute fracture, dislocation, or aggressive skeletal lesion. Mild facet joint hypertrophy. Soft tissues: No acute soft tissue findings. Gastrointestinal tract: Nonobstructive bowel gas pattern. IMPRESSION: 1. Neural stimulator circuit in the dorsal lumbar soft tissues. Neural stimulator wires project throughout the subcutaneous tissues and enter the central canal at the level of L1-L2. They course cranially through the central canal without kinks or discontinuities. 2. Mild degenerative changes at L4-L5 and L5-S1 without acute skeletal pathology. Assessment:: Degenerative disc disease of lumbar spine multilevel with lumbar radiculopathy symptoms, bilateral sacroiliitis, myofascial pain Plan:: Patient is experiencing significant pain in and around her spinal cord stimulator anchor. I have discussed with the patient that she may benefit from trigger point injections at this location. Patient did have po
[2022-08-07 12:05] VITALS: BP 162/90; PULSE 79; RESP 18; O2SAT 98; BMI 28.2
== END ==
PROVIDERS: PCP Nurse Practitioner Family; Visit Provider Nurse Practitioner Family
DX: M51.16 Intervertebral disc disorders with radiculopathy, lumbar region (principal); M46.1 Sacroiliitis, not elsewhere classified; M79.10 Myalgia, unspecified site
CPT/HCPCS: 99212; G0463

== ENCOUNTER 2022-08-15 14:33 | Day surgery (SDC) | payer OTHER, SELFPAY ==
[2022-08-15 14:35] VITALS: BP 135/78; PULSE 84; RESP 18; TEMP 36.6; O2SAT 100; BMI 28.7
--- NOTE | 2022-08-15 14:44 | P.PCN_ITS ---
Procedure Date: 08/15/22 Time: 14:30 Anesthesiologist:: Sami Harris CRNA Complications:: None Pre-procedure Diagnosis:: Degenerative disc disease lumbar spine multilevels. Lumbar radiculopathy. Chronic lumbar back pain. Myofascial pain lumbar paraspinous muscle left. Post-procedure Diagnosis:: Same. Indications for Procedure:: Very pleasant 46-year-old female that presents our clinic today for left lumbar paraspinous muscle trigger point injection. She has extreme point tenderness over the left lumbar paraspinous muscle. She has had trigger point injections in this area in the past with significant improvement. Procedure Details:: Details of the procedure explained to the patient. Patient was placed in sitting position. The area of the lumbar spine was cleansed using chlorhexidine as a cleansing solution. Using a solution containing 0.25% Marcaine +1% lidocaine and 40 mg of Depo-Medrol 3 mL of the solution was injected using 25- gauge needle in 3 separate areas along the left lumbar paraspinous muscle. Patient tolerated procedure without difficulty. There are no complications. Plan and Disposition:: Patient was discharged without incident.
[2022-08-15 14:50] VITALS: BP 122/74; PULSE 81; RESP 20
== END 2022-08-15 14:51 | disposition home or self-care (01) ==
PROVIDERS: PCP Nurse Practitioner Family; Visit Provider Nurse Anesthetist, Certified Registered
DX: M79.18 Myalgia, other site (principal); M51.16 Intervertebral disc disorders with radiculopathy, lumbar region; G89.29 Other chronic pain
CPT/HCPCS: 20552; J1040

== ENCOUNTER → 2022-08-17 14:15 | Outpatient (CLI) | payer OTHER, SELFPAY ==
--- NOTE | 2022-08-17 14:20 | CT_ITS ---
FINAL REPORT TECHNIQUE: Thin section noncontrast axial CT with sagittal reconstructions. This study was performed with techniques to keep radiation doses as low as reasonably achievable (ALARA). Individualized dose reduction techniques using automated exposure control or adjustment of mA and/or kV according to the patient's size were employed. CLINICAL HISTORY: LBP FINDINGS: CT LUMBAR SPINE No fracture is present. Alignment is normal. T12-L1: Minimal annular disc bulge. L1-L2: No significant disc disease is present. There is no canal stenosis. L2-L3: Minimal annular disc bulge. Mild facet arthropathy. L3-L4: Mild annular disc bulge. L4-L5: Moderate annular disc bulge. Vacuum disc degeneration with severe bilateral neural foraminal narrowing. L5-S1: Moderate annular disc bulge, partially calcified. Mild central canal stenosis. Mild right lateral and severe left lateral recess stenosis with moderate to severe bilateral neural foraminal narrowing. IMPRESSION: No fracture. Degenerative changes, most pronounced at L4-5 and L5-S1. Reviewed, Interpreted and Dictated by Arash Louise MD Transcribed by Anjelica Baez Authenticated and [facility]
== END ==
PROVIDERS: PCP Nurse Practitioner Family; Visit Provider Nurse Practitioner Family
DX: M54.50 Low back pain, unspecified (principal)
CPT/HCPCS: 72131

== ENCOUNTER → 2022-08-30 14:42 | Outpatient (POV) | payer OTHER, SELFPAY ==
--- NOTE | 2022-08-30 14:50 | EXP.PAIN.SOA ---
[facility] Pain Management SOAP Note Subjective:: Patient is a pleasant 47-year-old female who presents today for follow-up of trigger point injections of her left lumbar paraspinous muscle on 08/15/[address] follow-up. We are currently treating the patient for degenerative disc disease of lumbar spine with lumbar radiculopathy symptoms, bilateral sacroiliitis, myofascial pain. Today she rates her pain a 3 out of 10. Patient states she has had approximately 30% improvement and is still currently helping some. She does state that she does have some additional soreness still around her anchor site in her low back and into her legs. She does describe this as an aching, throbbing sensation that is worse with increased activity. Patient does state the pain interferes with her ability perform activities of daily living. Patient has tried medications, heat and ice, topicals, physical therapy, at home stretching and exercise for longer than 6 weeks with minimal relief. She was able to have [employer] representatives reprogram the device at her last visit however she states she did not have any additional improvement. Patient is not on any scheduled medications. Her Jb is [id number]. Its been reviewed and appropriate. Review of Systems: General: No recent weight changes, no fever, no sleep disturbances Respiratory: No cough, no shortness of air, no recurring pulmonary infections Cardiovascular/peripheral vascular: No chest pain, no palpitations, no edema, no shortness of breath Gastrointestinal: No new onset incontinence, normal bowel movements reported Genitourinary: No new onset incontinence Musculoskeletal: Low back pain, bilateral leg pain Psychiatric: [Normal mood/affect] Neurological: [Denies weakness in extremities], [denies balance issues] Objective:: Physical Exam: General: Alert and oriented x3, no acute distress, pleasant and cooperative Lungs: Respirations even and unlabored, symmetrical chest expansion Eyes: PERRL Musculoskeletal: Flexion and extension of lumbar [spine] somewhat guarded secondary to pain, [antalgic gait noted] Neurological: Speech clear, no gross sensory deficit TECHNIQUE: Thin section noncontrast axial CT with sagittal reconstructions. This study was performed with techniques to keep radiation doses as low as reasonably achievable (ALARA). Individualized dose reduction techniques using automated exposure control or adjustment of mA and/or kV according to the patient's size were employed. CLINICAL HISTORY: LBP FINDINGS: CT LUMBAR SPINE? No fracture is present. Alignment is normal. T12-L1:? Minimal annular disc bulge.? L1-L2:? No significant disc disease is present. There is no canal stenosis. ? L2-L3: Minimal annular disc bulge.? Mild facet arthropathy.? L3-L4: Mild annular disc bulge.? L4-L5:? Moderate annular disc bulge. Vacuum disc degeneration with severe bilateral neural foraminal narrowing.? L5-S1:? Moderate annular disc bulge, partially calcified.? Mild central canal stenosis.? Mild right lateral and severe left lateral recess stenosis with moderate to severe bilateral neural foraminal narrowing. IMPRESSION: No fracture.? ? Degenerative changes, most pronounced at L4-5 and L5-S1. Reviewed, Interpreted and Dictated by Arash Louise MD Transcribed by Anjelica Baez Authenticated and [facility] Assessment:: Degenerative disc disease of lumbar spine with lumbar radiculopathy symptoms, bilateral sacroiliitis, myofascial pain Plan:: Patient is experiencing significant pain in her low back with radiating symptoms into her lower extremities. Patient did have limited range of motion of her lumbar spine during today's visit. I have counseled her that she may benefit from a lumbar epidural steroid injection. Risk and benefits were discussed with the patient and she would like to proceed forward with this plan of care. Patient has tr
[2022-08-30 15:11] VITALS: BP 145/85; PULSE 88; RESP 18; O2SAT 97; BMI 28.2
== END | disposition home or self-care (01) ==
PROVIDERS: PCP Nurse Practitioner Family; Visit Provider Nurse Practitioner Family
DX: M51.16 Intervertebral disc disorders with radiculopathy, lumbar region (principal); M46.1 Sacroiliitis, not elsewhere classified; M79.10 Myalgia, unspecified site
CPT/HCPCS: 99212; G0463

== ENCOUNTER → 2022-09-18 13:45 | Outpatient (POV) | payer OTHER, SELFPAY ==
[2022-09-18 13:53] VITALS: BP 133/87; PULSE 87; RESP 18; O2SAT 97; BMI 28.2
--- NOTE | 2022-09-18 14:01 | EXP.PAIN.SOA ---
[facility] Pain Management SOAP Note Subjective:: Patient is a pleasant 47-year-old female who presents today for denial of lumbar epidural steroid injection.? We are currently treating the patient for degenerative disc disease of lumbar spine with lumbar radiculopathy symptoms, bilateral sacroiliitis, myofascial pain.? Today she rates her pain a 5 out of 10.? She denies any new trauma or injury. She denies any change in location or type of pain she experiences. She has chronic pain in her low back with radiating symptoms into her bilateral extremities. Patient does describe this as a aching, throbbing sensation along with numbness and tingling in her lower extremities that is worse with increased activity. She does state the pain interferes with her ability perform activities of daily living such as cooking and cleaning.? Patient has tried medications, heat and ice, topicals, physical therapy, at home stretching and exercise for longer than 6 weeks with minimal relief.? She does have a [employer] stimulator in place and denies any problems with the device.? At our last visit we did try Celebrex 100 mg however the patient states she was unable to tolerate this due to GI upset. Patient has since discontinued this medication. Patient is not on any scheduled medications.? Her Jb is [id number].? Its been reviewed and appropriate. Review of Systems: General: No recent weight changes, no fever, no sleep disturbances Respiratory: No cough, no shortness of air, no recurring pulmonary infections Cardiovascular/peripheral vascular: No chest pain, no palpitations,? no edema, no shortness of breath Gastrointestinal: No new onset incontinence, normal bowel movements reported Genitourinary: No new onset incontinence Musculoskeletal: Low back pain, bilateral leg pain Psychiatric: [Normal mood/affect] Neurological: [Denies weakness in extremities], [denies balance issues] Objective:: Physical Exam: General: Alert and oriented x3, no acute distress, pleasant and cooperative Lungs: Respirations even and unlabored, symmetrical chest expansion Eyes: PERRL Musculoskeletal: Flexion and extension of lumbar [spine] somewhat guarded secondary to pain, [antalgic gait noted] Neurological: Speech clear, no gross sensory deficit FINAL REPORT TECHNIQUE: Thin section noncontrast axial CT with sagittal reconstructions. This study was performed with techniques to keep radiation doses as low as reasonably achievable (ALARA). Individualized dose reduction techniques using automated exposure control or adjustment of mA and/or kV according to the patient's size were employed. CLINICAL HISTORY: LBP FINDINGS: CT LUMBAR SPINE? No fracture is present. Alignment is normal. T12-L1:? Minimal annular disc bulge.? L1-L2:? No significant disc disease is present. There is no canal stenosis. ? L2-L3: Minimal annular disc bulge.? Mild facet arthropathy.? L3-L4: Mild annular disc bulge.? L4-L5:? Moderate annular disc bulge. Vacuum disc degeneration with severe bilateral neural foraminal narrowing.? L5-S1:? Moderate annular disc bulge, partially calcified.? Mild central canal stenosis.? Mild right lateral and severe left lateral recess stenosis with moderate to severe bilateral neural foraminal narrowing. IMPRESSION: No fracture.? ? Degenerative changes, most pronounced at L4-5 and L5-S1. Reviewed, Interpreted and Dictated by Arash Louise MD Transcribed by Anjelica Baez Authenticated and [facility] Assessment:: Degenerative disc disease of lumbar spine with lumbar radiculopathy symptoms, bilateral sacroiliitis, myofascial pain Plan:: Patient continues to experience severe pain in her low back with radiating symptoms into her lower extremities. I do believe that the patient would benefit from a lumbar epidural steroid injection. Risk and benefits were discussed with the patient and she would like to proce
== END ==
PROVIDERS: PCP Nurse Practitioner Family; Visit Provider Nurse Practitioner Family
DX: M51.16 Intervertebral disc disorders with radiculopathy, lumbar region (principal); M46.1 Sacroiliitis, not elsewhere classified; M79.10 Myalgia, unspecified site
CPT/HCPCS: 99212; G0463

== ENCOUNTER 2022-09-22 15:19 | Emergency (ER) | payer OTHER, SELFPAY ==
[2022-09-22 15:20] VITALS: BP 142/94; PULSE 88; RESP 17; TEMP 36.6; O2SAT 98; BMI 28.2
--- NOTE | 2022-09-22 15:40 | HMH.EDGENADL ---
Discharge Plan Disposition Patient Disposition: Home, Self-Care Prescriptions Prescriptions: New doxycycline hyclate 100 mg capsule 100 mg PO BID 7 Days Qty: 14 0RF No Action omeprazole 20 mg capsule,delayed release(DR/EC) 20 mg PO BID Qty: 180 0RF cyclobenzaprine 10 mg tablet 10 mg PO DAILY Qty: 90 0RF ferrous sulfate 325 mg (65 mg iron) tablet 325 mg PO DAILY Qty: 90 0RF lisinopril 10 mg tablet See Rx Instructions .ROUTE .COMPLEX Rx Instructions: TAKE 1 TABLET BY MOUTH ONCE DAILY FOR HIGH BLOOD PRESSURE metoprolol succinate 50 mg tablet extended release 24 hr See Rx Instructions .ROUTE .COMPLEX Rx Instructions: TAKE 1 TABLET BY MOUTH ONCE DAILY FOR HEART DISEASE amlodipine 10 mg tablet See Rx Instructions .ROUTE .COMPLEX Rx Instructions: TAKE 1 TABLET BY MOUTH TWICE DAILY FOR HIGH BLOOD PRESSURE levothyroxine 150 mcg tablet See Rx Instructions .ROUTE .COMPLEX Rx Instructions: Take 1 tablet by mouth once daily hydrochlorothiazide 25 mg tablet See Rx Instructions .ROUTE .COMPLEX Rx Instructions: TAKE 1 TABLET BY MOUTH ONCE DAILY FOR FLUID topiramate 100 mg tablet See Rx Instructions .ROUTE .COMPLEX Rx Instructions: TAKE 1 TABLET BY MOUTH TWICE DAILY FOR HEADACHE metformin 500 mg tablet extended release 24 hr See Rx Instructions .ROUTE .COMPLEX Rx Instructions: TAKE 1 TABLET BY MOUTH ONCE DAILY FOR DIABETES celecoxib 100 mg capsule 100 mg PO DAILY Referrals Follow up/Referrals: Charbel Spencer APRN [Primary Care Provider] - See instructions Activity Restrictions/Add. Instructions Additional Instructions/Restrictions: Return to the emergency department with any worsening of her symptoms and follow-up with your primary care doctor if this is not improving otherwise you should notice an improvement in 48 to 72 hours after initiating antibiotics. Clinical Impressions Clinical Impression: Pustule, Cellulitis Discharge ED Provider: Libertad Koch General Adult HPI General Chief complaint: Allergic Reaction Stated complaint: bilateral leg insect bites Time Seen by Provider: 09/22/22 15:40 Mode of Arrival: Ambulatory Source of Information: Patient Limitations: No Limitations Description of Symptoms (Recalled from ER Triage Doc. by RN): 47 F presents with c/o insect bites to her BLE that occurred 2 days ago. Patient is not sure what could've bit her. She does not have animals in her home. Patient denies itching, but reports pain to these spots. She has 1 on each posterior calf, appriximately the size of a nickel. There is a dime sized on her left ankle. History of Present Illness HPI narrative: 47-year-old female presenting with pustules on her lower extremities. States this has been going on for a few days she has not been doing anything out of the ordinary other than working at [employer] and being at home. No animal exposures or mite exposures she also has not been outside to be exposed to any bugs that she is aware of. The wounds are located on the medial aspect of her right leg at the dorsal aspect of her left lower leg and the dorsal aspect of her left foot. There about 1 to 2 cm in length from historical standpoint tender erythematous and have centralized areas of induration. She did not have any fevers chills or any other symptoms. Related Data Home Medications Medication Instructions Recorded Confirmed lisinopril 10 mg tablet See Rx Instructions .Route 12/08/21 09/18/22 .COMPLEX BLOOD PRESSURE amlodipine 10 mg tablet See Rx Instructions .Route 08/07/22 09/18/22 .COMPLEX BLOOD PRESSURE hydrochlorothiazide 25 mg tablet See Rx Instructions .Route 08/07/22 09/18/22 .COMPLEX Fluid levothyroxine 150 mcg tablet See Rx Instructions .Route 08/07/22 09/18/22 .COMPLEX THYROID metformin 500 mg tablet,extended See Rx Instructions .Route 08/07/22 09/18/22 release 24 hr .COMPLEX DM metopr
[2022-09-22 15:49] VITALS: BP 161/90; PULSE 88; RESP 20; TEMP 36.6; O2SAT 99
== END 2022-09-22 15:50 | disposition home or self-care (01) ==
PROVIDERS: Emergency Provider Student in an Organized Health Care Education/Training Program; PCP Nurse Practitioner Family
DX: L03.115 Cellulitis of right lower limb (principal); L03.116 Cellulitis of left lower limb; S70.361S Insect bite (nonvenomous), right thigh, sequela; S80.862S Insect bite (nonvenomous), left lower leg, sequela; S90.862S Insect bite (nonvenomous), left foot, sequela; J44.9 Chronic obstructive pulmonary disease, unspecified; E11.9 Type 2 diabetes mellitus without complications; I10 Essential (primary) hypertension; E07.9 Disorder of thyroid, unspecified; F41.9 Anxiety disorder, unspecified; G43.909 Migraine, unspecified, not intractable, without status migrainosus; F17.210 Nicotine dependence, cigarettes, uncomplicated; W57.XXXA Bitten or stung by nonvenomous insect and other nonvenomous arthropods, initial encounter
CPT/HCPCS: 99283; 99284

== ENCOUNTER 2022-11-07 10:28 | Day surgery (SDC) | payer OTHER, SELFPAY ==
[2022-11-07 10:39] VITALS: BP 144/92; PULSE 84; RESP 18; O2SAT 97
[2022-11-07 10:42] VITALS: BP 131/84; PULSE 81; RESP 18; O2SAT 100; BMI 28.2
--- NOTE | 2022-11-07 10:48 | EXP.PAIN.PRO ---
Procedure Date: 11/07/22 Time: 10:40 Anesthesiologist:: Sami Harris CRNA Complications:: None Pre-procedure Diagnosis:: Degenerative disc lumbar spine multilevels. Lumbar radiculopathy. Lumbar postlaminectomy syndrome Post-procedure Diagnosis:: Same. Indications for Procedure:: This patient is a very pleasant 47-year-old female comes our clinic today for lumbar epidural steroid injection at the L4-5 level. However, after evaluation under fluoroscopy we will give the injection at the L5-S1 level. Patient has had discectomy and laminectomy at the L4-5 level. Patient has non-operational spinal cord stimulator. Patient complains of low back pain as well as bilateral hip and leg radicular symptoms. She rates her pain 8/10 Procedure Details:: Procedure: Lumbar epidural steroid injection under fluoroscopy Informed consent was obtained and the risks and benefits of the procedure were explained to the patient. The patient was taken to the procedure room and noninvasive monitors placed, including noninvasive blood pressure cuff and pulse oximeter. The back was viewed using C-arm Fluoroscopy and prepped using Chloraprep as a cleansing solution and the L5-S1 interspace was palpated. Skin and subcutaneous tissues were anesthetized using lidocaine 1.5% and a 25-gauge needle. After this, an 18-gauge Touhy epidural needle was placed into the L5-S1 interspace and advanced using fluoroscopic guidance and loss of resistance to air until the epidural space was encountered. After confirmation of needle placement in the epidural space, with dye, a solution containing normal saline, 3 mL and Depo-Medrol 80 mg were incrementally injected into the lumbar epidural space. The patient tolerated the procedure well with no complications. The patient was observed in the Pain Clinic and then discharged home neurologically intact. Plan and Disposition:: Patient was discharged without incident.
[2022-11-07 10:55] VITALS: BP 122/86; PULSE 77; RESP 18; O2SAT 100
== END 2022-11-07 10:55 | disposition home or self-care (01) ==
PROVIDERS: PCP Nurse Practitioner Family; Visit Provider Nurse Anesthetist, Certified Registered
DX: M51.16 Intervertebral disc disorders with radiculopathy, lumbar region (principal); M96.1 Postlaminectomy syndrome, not elsewhere classified
CPT/HCPCS: 62323; J1040

== ENCOUNTER 2024-11-19 11:26 | Outpatient (CLI) | payer MEDICAID, SELFPAY ==
[2024-11-19 19:27] LABS: Hematocrit 29.5 % (37.0-47.0); Hemoglobin 9.0 g/dL (12.2-16.2); Immature Granulocytes % 0.3 %; Mean Corpuscular HGB Conc 30.5 g/dL (31.8-35.4); Mean Corpuscular Hemoglobin 23.9 pg (27.0-31.2); Mean Corpuscular Volume 78.2 fl (81-99); Nucleated Red Blood Cells % 0 %; Platelet Count 287 K/mm3 (142-424); Red Blood Count 3.77 M/mm3 (4.20-5.40); Red Cell Distribution Width-SD 49.4 fL; White Blood Count 7.2 K/mm3 (4.8-10.8)
[2024-11-19 20:19] LABS: Albumin Level 4.5 g/dl (3.5-5.0); Chloride 105 mmol/L (98-107)
[2024-11-19 20:20] LABS: Potassium 4.1 mmoL/L (3.5-5.1); Sodium 138 mmol/L (136-145)
[2024-11-19 20:22] LABS: Alanine Aminotransferase 22 U/L (12-78); Alkaline Phosphatase 61 U/L (38-126); Anion Gap 12.1 mEq/L (5-15); Aspartate Amino Transferase 33 U/L (14-36); Bilirubin,Total 0.4 mg/dl (0.2-1.3); Blood Urea Nitrogen 14 mg/dl (7-17); Carbon Dioxide 25 mmol/L (22.0-30.0); Creatinine,Serum 0.80 mg/dl (0.52-1.04); Estimated Glomerular Filt Rate 77 ml/min (>60); GFR (African American) 93 ML/MIN (>60)
[2024-11-19 20:23] LABS: Albumin/Globulin Ratio 1.5 (1.1-1.8); Calcium 9.5 mg/dl (8.4-10.2); Cholesterol 183 mg/dl (140-200); Globulin 3.0 g/dL (1.3-3.2); Glucose 80 mg/dl (74-100); HDL Cholesterol 45 mg/dl (40-60); Iron 29 ug/dL (37-170); Total Protein,Serum 7.5 g/dl (6.3-8.2); Triglycerides 113 mg/dl (30-150)
[2024-11-19 20:33] LABS: Total Iron Binding Capacity 424 ug/dL (265-497)
[2024-11-19 20:42] LABS: Free Thyroxine Index 0.5 ug/dL (5.93-13.13); T4 (Thyroxine) 2.0 ug/dl (5.53-11.0); Triiodothryronine (T3) Uptake 26 % (23.5-40.5)
[2024-11-19 21:02] LABS: Ferritin 4.22 ng/ml (6.24-137)
[2024-11-19 21:13] LABS: Hepatitis C Ab Qual. W/ RFX NEGATIVE (Negative)
[2024-11-19 21:44] LABS: Thyroid Stimulating Hormone 237.00 uIU/mL (0.465-4.68)
[2024-11-19 21:45] LABS: Hemoglobin A1C 5.1 % (4.0-6.0)
[2024-11-21 10:12] LABS: Hepatitis B Surface Antigen Negative (Negative)
== END 2024-11-19 23:59 | disposition home or self-care (01) ==
LOC: LAB.DROPOF 11-21 11:26
PROVIDERS: PCP Family Medicine; Visit Provider Family Medicine
DX: E11.65 Type 2 diabetes mellitus with hyperglycemia (principal); D50.9 Iron deficiency anemia, unspecified; E03.9 Hypothyroidism, unspecified; Z11.59 Encounter for screening for other viral diseases; I10 Essential (primary) hypertension
CPT/HCPCS: 80053; 80061; 82728; 83036; 83540; 83550; 84436; 84443; 84479; 85025; 86803; 87340; 87389

== ENCOUNTER 2024-11-24 08:09 | Outpatient (CLI) | payer MEDICAID, SELFPAY ==
--- NOTE | 2024-11-24 08:30 | US_ITS ---
FINAL REPORT TECHNIQUE: Real-time grayscale and color ultrasound of the thyroid was performed. CLINICAL HISTORY: enlarged thyroid COMPARISON: None FINDINGS: The thyroid gland measures 33 x 12 x 9 mm on the right and 37 x 13 x 10 mm on the left. The isthmus measures 2 mm. The thyroid gland is small and heterogeneous.. Nodules: No suspicious mass or nodule. IMPRESSION: Small heterogeneous thyroid gland with no mass or nodule identified. Reviewed, Interpreted and Dictated by Marc Larose MD Transcribed by Nieves Rod Authenticated and . [facility]
== END 2024-11-24 23:59 | disposition home or self-care (01) ==
LOC: RAD 08:09
PROVIDERS: PCP Family Medicine; Visit Provider Family Medicine
DX: E03.9 Hypothyroidism, unspecified (principal); E04.9 Nontoxic goiter, unspecified; R93.89 Abnormal findings on diagnostic imaging of other specified body structures
CPT/HCPCS: 76536

== ENCOUNTER 2024-12-30 11:23 | Emergency (ER) | payer SELFPAY ==
--- NOTE | 2024-12-30 11:32 | ED_ITS ---
<Statement entered by Robin Pelletier MD - 12/30/24 16:20> I consulted the AYLA, and we discussed the complexity of the problems being addressed. I approved the treatment and management plan for this patient's care in the emergency department, thus performing a substantial portion of the medical decision making. Ernie Pelletier MD Discharge Plan Disposition Patient Disposition: Home, Self-Care Condition: Good Prescriptions Prescriptions: New meclizine 50 mg tablet 50 mg PO DAILY PRN (Reason: motion sickness) Qty: 14 0RF No Action levothyroxine 150 mcg tablet 150 mcg PO DAILY Qty: 30 2RF ferrous sulfate 325 mg (65 mg iron) tablet 325 mg PO DAILY Qty: 90 0RF lisinopril-hydrochlorothiazide 20-12.5 mg tablet 2 tab PO DAILY valacyclovir [Valtrex] 1 gram tablet 1,000 mg PO Q8H 10 Days Qty: 30 0RF topiramate 100 mg tablet See Rx Instructions .ROUTE .COMPLEX Rx Instructions: TAKE 1 TABLET BY MOUTH TWICE DAILY FOR HEADACHE Referrals Follow up/Referrals: Micki Francis APRN [Primary Care Provider, Family Practice] - See instructions Activity Restrictions/Add. Instructions Additional Instructions/Restrictions: Please return to the emergency department with any worsening signs or symptoms. Please use your antihistamine/dizzy medication as prescribed as needed. Please follow-up with your PCP in the upcoming days/weeks. Please take all your other medication as prescribed. Clinical Impressions Clinical Impression: Benign positional vertigo Instructions Patient Instructions: DI for Benign Paroxysmal Positional Vertigo, DI for Vertigo Print Language Print Language: British Discharge ED Provider: Robin Pelletier General Adult HPI General Chief complaint: Dizziness Stated complaint: Dizziness Time Seen by Provider: 12/30/24 11:27 Mode of Arrival: Ambulatory Source of Information: Patient Limitations: No Limitations History of Present Illness HPI narrative: 49-year-old female presents the emergency department dizziness that started around 9 AM this morning, when she was going from a sitting to standing position and looking down , at her job going to pick something up, patient states that the room is spinning , when she moves her head, however at rest it is better, she denies any presyncopal or syncopal event, no headache, does endorse some lightheadedness , denies any fever chills cough congestion chest pain, does have some shortness of breath that is somewhat chronic for her, denies any shortness of breath chest pain currently, admits to some nausea, no vomiting no abdominal pain no constipation no diarrhea no urinary type symptomatology, patient is a current everyday smoker, denies any alcohol or drug use, other past medical history is consistent with iron deficiency anemia, MDD/CHUCK, osteoarthritis, hypertension, PAD, hypothyroidism. Initial triage vitals are grossly unremarkable. Please note that above description of symptoms, in this electronic medical record under categorization of recalled from ER triage doctor by RN are reflective of an initial nursing assessment, however, is not reflective of my full history and physical exam that was personally taken and clarified. Consequentially, this preceding description of symptoms, which may include the patient's categorized chief complaint in the EMR, do not reflect my personal clinical impression, and the ultimate description of history of present illness and patient stated complaints should be deferred to this section of the note. Unless stated otherwise or congruent with this section of the note, additional signs, symptoms, or incongruence should be interpreted as inaccurate with my clinical impression. Onset (ago): hour(s) Related Data Home Medications ?Medication ?Instructions ?Recorded ?Confirmed topiramate 100 mg tablet See Rx Instructions .Route 0 11/07/22 12/09/24 .COMPLEX . lisinopril 20 2 tab PO DAILY 12/09/24 mg-hydrochlorothiazide 12.5 mg tablet Previous Rx's ?Medication ?Instructions ?Recorded ferrous sulfate 325 mg (65 mg 325 mg PO DAILY Suppleme nt #90 tabs 11/20/24 iron) tablet levothyroxine 150 mcg tablet 150 mcg PO DAILY . #30 ta bs 11/20/24 valacyclovir 1 gram tablet 1,000 mg PO Q8H 10 days #30 tabs 12/09/24 (Valtrex) meclizine 50 mg tablet 50 mg PO DAILY PRN motion si ckness 12/30/24 #14 tabs Allergies Allergy/AdvReac Type Severity Reaction Status Date / Time bupropion Allergy hives, Verified 12/09/24 15:38 slurred speech gabapentin Allergy hives Verified 12/09/24 15:38 Penicillins Allergy stopped Verified 12/09/24 15:38 heart as a child [facility] Disclaimer: The information contained in this section may have been updated after the patient was seen, as this information can be updated by other users. Medical History Abrasion hip/leg Hematoma Sinusitis, acute maxillary Right wrist tendinitis Neuralgia of right inguinal region Paresthesia and pain of both upper extremities Wrist pain, right Paresthesia of both lower extremities Cold extremities Heel spur Contusion of ankle, left Foot pain Diabetes mellitus Onychodystrophy Diabetic foot Seroma Pustule Cellulitis History of anemia Thyroid disease Depression Anxiety Migraine Hypertension Diabetes mellitus, type 2 COPD (chronic obstructive pulmonary disease) Pre-diabetes Tobacco use Chest pain Surgical History H/O skin graft History of section Previous back surgery Family History Other No significant family history Social History Smoking Status: Current every day smoker tobacco type: cigarettes packs per day: 1 second hand exposure: No alcohol intake: never substance use type: denies use current occupational status: employed Travel in the last 8 weeks?: None household members: spouse housing: house current occupation: [employer] current occupational exposures/hazards: No caffeine: No Have you lived/traveled outside [place] in past 30 days?: No Contact w/someone who lives/traveled outside US past 30 days?: No Exposure to someone with infectious disease in past 14 days?: No Do you have a fever (greater than 100.4 F or 38 C)?: No Have you tested positive for COVID-19?: No Exposed to someone with COVID-19 in past 14 days?: No Do you have a sore throat?: No Do you have a cough?: No Do you have any weakness?: No Do you have any diarrhea?: No Are you experiencing any unusual bleeding?: No Do you have any muscle aches/pain?: No Do you have any abdominal pain?: No Are you experiencing loss of taste or smell?: No Other Medical History Have you received the Flu Vaccine for this season: No Have you received the Pneumonia Vaccine: No ROS Obtained: Yes All systems reviewed & no additional complaints except as documented Physical Exam General General appearance: alert and in no apparent distress Head Head exam: atraumatic and normocephalic Eye Eye exam: Present PERRL, EOMI and other (There is no rotational vertical or horizontal nystagmus); Absent nystagmus ENT ENT exam: Present mucous membranes moist Neck Neck exam: Present normal inspection Chest Chest inspection: Present normal inspection and symmetric chest wall rise Respiratory Respiratory exam: Present normal lung sounds bilaterally; Absent respiratory distress Cardiovascular Cardiovascular exam: Present regular rate and normal rhythm Abdominal Exam Abdominal exam: Present soft; Absent tenderness, guarding or rebound Extremities Exam Extremities exam: Present normal inspection Neurological Exam Neurological exam: Present alert, oriented X3 and other (Negative dysmetria, negative hvkzop-hy-[id number] test, 5 out of 5 strength in the bilateral lower and upper extremities, no gross sensation deficit, no pronator drift in the upper extremities, negative Romberg sign) Psychiatric Psychiatric exam: Present normal affect Skin Skin exam: Present warm and dry Medical Decision Making Medical Records Medical records reviewed: Yes I reviewed the patient's medical records. Screening: Per USPSTF and CDC recommendations, given the prevalence of disease in our region, it is our hospital?s policy to screen for HIV and viral Hepatitis for all patients aged 18 and over and those with ongoing risk factors. Jb Inquiry Pt receiving controlled substance: No Jb was queried for this patient: No Vital Signs: 12/30/24 11:34 12/30/24 11:34 12/30/24 12:15 Temperature 98.1 F 98.1 F Temperature Source Oral Oral Pulse Rate 77 62 Pulse Rate [Orthostatic Lying Right Radial] Pulse Rate [Orthostatic Sitting Right Radial] Pulse Rate [Orthostatic Standing Right Radial] Pulse Rate [Right] 77 Respiratory Rate 17 17 Blood Pressure 151/95 H 127/74 Blood Pressure [Orthostatic Lying Right Arm] Blood Pressure [Orthostatic Sitting Right Arm] Blood Pressure [Orthostatic Standing Right Arm] Blood Pressure [Right Arm] 151/95 H Blood Pressure Mean [Right Arm] 113 Blood Pressure Source Automatic Cuff Blood Pressure Source [Right Arm] Automatic Cuff Blood Pressure Position Supine Blood Pressure Position [Right Arm] Supine 02 Sat by Pulse Oximetry 100 100 100 Oxygen Delivery Method Room Air Room Air 12/30/24 12:18 Temperature Temperature Source Pulse Rate Pulse Rate [Orthostatic Lying Right Radial] 62 Pulse Rate [Orthostatic Sitting Right Radial] 64 Pulse Rate [Orthostatic Standing Right Radial] 71 Pulse Rate [Right] Respiratory Rate Blood Pressure Blood Pressure [Orthostatic Lying Right Arm] 127/74 Blood Pressure [Orthostatic Sitting Right Arm] 126/77 Blood Pressure [Orthostatic Standing Right Arm] 128/79 Blood Pressure [Right Arm] Blood Pressure Mean [Right Arm] Blood Pressure Source Blood Pressure Source [Right Arm] Blood Pressure Position Blood Pressure Position [Right Arm] 02 Sat by Pulse Oximetry Oxygen Delivery Method Lab Data Lab results reviewed: Yes I reviewed the patient's lab results. Lab Results 12/30/24 11:45: WBC 8.6, RBC 4.13 L, Hgb 9.3 L, Hct 31.6 L, MCV 76.5 L, MCH 22.5 L, MCHC 29.4 L, RDW 18.6 H, Plt Count 281, MPV 10.2, Neut % (Auto) 55.9, Lymph % (Auto) 33.3, [place] % (Auto) 8.8, Eos % (Auto) 1.4, Baso % (Auto) 0.3, Neut # (Auto) 4.8, Lymph # (Auto) 2.9, [place] # (Auto) 0.8, Eos # (Auto) 0.1, Baso # (Auto) 0.0, Sodium 141, Potassium 4.3, Chloride 109 H, Carbon Dioxide 23, Anion Gap 13.3, BUN 12, Creatinine 0.70, Estimated Creat Clear 127, Estimated GFR 89, Est GFR ( Amer) 108, Glucose 91, Calcium 9.3, Magnesium 1.9, Total Bilirubin 0.6, AST 30, ALT 15, Alkaline Phosphatase 60, Troponin I < 0.01, NT-Pro-B Natriuret Pep 77.2, Total Protein 7.4, Albumin 4.2, Globulin 3.2, Albumin/Globulin Ratio 1.3, HCV Ab BRANDAN w/Rflx PCR Qn Negative, HIV Ag/Ab Combo Qual Negative 12/30/24 11:45 12/30/24 11:45 Orders (Tests/Meds): ED MEDICATIONS Discontinued Medications Generic Name Dose Route Start Last Admin Trade Name Freq PRN Reason Stop Dose Admin Iopamidol 80 ml 12/30/24 12:26 12/30/24 12:27 Iopamidol-370 (76%);100ml Bottle IV 12/30/24 12:27 80 ml ONCE ONE Administration Meclizine HCl 50 mg 12/30/24 11:41 12/30/24 11:51 Meclizine 25mg Tablet PO 12/30/24 11:42 50 mg ONCE ONE Administration Sodium Chloride 50 ml 12/30/24 12:26 12/30/24 12:26 0.9 % Sodium Chloride 50 Ml Vial IV 12/30/24 12:27 50 ml ONCE ONE Administration Sodium Chloride 10 ml 12/30/24 12:26 12/30/24 12:26 Sodium Chloride 0.9% 10ml Syr (Rad Only) IV 12/30/24 12:27 10 ml ONCE ONE Administration ORDERS Category Date Time Status CT angio head Stat Cat Scan 12/30/24 11:[address] angio neck Stat Cat Scan 12/30/24 11:[address] head/brain wo con Stat Cat Scan 12/30/24 11:40 Completed Complete Blood Count Auto Diff Stat Lab 12/30/24 11:45 Completed Comprehensive Metabolic Panel Stat Lab 12/30/24 11:45 Completed HIV Combo Stat Lab 12/30/24 11:45 Completed Hepatitis C Ab Qual. W/ RFX Stat Lab 12/30/24 11:45 Completed Magnesium Stat Lab 12/30/24 11:45 Completed NT Pro Brain Natriuretic Pep. Stat Lab 12/30/24 11:45 Completed Troponin I Q3H Lab 12/30/24 14:45 Ordered Troponin I Q3H Lab 12/30/24 17:45 Ordered Troponin I Stat Lab 12/30/24 11:45 Completed Medical Decision Narrative: 49-year-old female presents the emergency department with dizziness, that has been going on for the last few hours, worse with position changes, differential diagnosis include but not limited to, cardiac arrhythmia, electrolyte disturbance, TIA/CVA, peripheral vertigo, orthostatic hypotension among others. I discussed this patient's case with the attending physician Dr. Pelletier Will obtain basic laboratory studies, proBNP, troponin, EKG, CT head without contrast, CTA head and neck with and without contrast, obtain orthostatic blood pressures, and will give 50 mg p.o. meclizine for dizziness. CBC is notable for erythrocyte pi?a 4.13, hemoglobin is decreased at 9.3, hematocrit is 31.6, MCV is decreased 76.5, which appears to be within the patient's baseline anemia, of the iron deficiency type. CMP unremarkable Initial troponin within normal limits at less than 0.01, proBNP within normal limits. Otherwise unremarkable CMP Orthostatic vitals within normal limits Notified by nursing staff at approxi-1 PM that the patient's symptomatology improved after meclizine administration. I reviewed the patient's CT head without contrast on the corresponding radiologic report, no acute intracranial malady. I reviewed the patient's CTA head and neck with and without contrast along the corresponding radiologic report, unremarkable CT angiogram of anterior cerebral vasculature, no evidence of carotid stenosis patent vertebral arteries. Reexamination of the patient approximately 2:10 PM, patient is resting comfortably in a chair, no nystagmus is appreciated vertical horizontal rotational, patient was able to walk test unaffected, states her lightheadedness and vertiginous type symptoms have improved especially meclizine administration, patient is otherwise neurovascular intact I think low risk for any neurovascular reason for the patient's dizziness I believe more of a benign paroxysmal positional vertigo/inner ear pathology, otoscope exam is normal bilaterally, however, since patient's symptomatology is improved, would like to be discharged home to self-care, she decision-making was utilized this is very appropriate. Strict return precautions were given. Will give patient trial of meclizine 50 mg p.o. as needed for dizziness as outpatient. Patient voiced understanding and agreement with the current treatment plan/discharge plan. Critical Care Critical Care Time Critical Care Time: No
[2024-12-30 11:34] VITALS: BP 151/95; PULSE 77; RESP 17; TEMP 36.7; O2SAT 100; BMI 29.0
--- NOTE | 2024-12-30 11:40 | CT_ITS ---
FINAL REPORT TECHNIQUE: Thin section axial images were obtained from skull base to vertex without contrast. Coronal reconstruction images were obtained from the axial data. Exam was performed using dose reduction techniques such as automated exposure control, adjustment of the mA and kV according to patient size, and use of iterative reconstruction technique. CLINICAL HISTORY: Dizziness FINDINGS: There is no mass effect or midline shift. There is no hydrocephalus. There is no intracranial hemorrhage. The posterior fossa is without acute abnormality. The basilar cisterns are preserved. The soft tissues are without acute abnormality. No acute osseous abnormality is identified. IMPRESSION: No acute intracranial abnormality. Reviewed, Interpreted and Dictated by Myrna Bustillos MD Transcribed by Anjelica Baez Authenticated and [facility]
--- NOTE | 2024-12-30 11:40 | CT_ITS ---
FINAL REPORT TECHNIQUE: Thin section axial images are obtained through the brain after intravenous contrast injection. Multiplanar reconstructions were obtained from the axial data. Exam was performed using dose reduction techniques such as automated exposure control, adjustment of the mA and kV according to patient size, and use of iterative reconstruction technique. CLINICAL HISTORY: Dizziness FINDINGS: The intracerebral portions of the carotid arteries are patent. The anterior and middle cerebral arteries are patent. The posterior cerebral arteries arise from the basilar artery. They are patent. [place] of [place] is intact. The basilar artery is patent. The vertebral arteries are patent. There is no significant stenosis, aneurysm, or AVM. IMPRESSION: Unremarkable CT angiogram of the intracerebral vasculature. Reviewed, Interpreted and Dictated by Myrna Bustillos MD Transcribed by Anjelica Baez Authenticated and [facility]
--- NOTE | 2024-12-30 11:40 | CT_ITS ---
FINAL REPORT TECHNIQUE: Thin section axial images were obtained from the aortic arch to the skull base after intravenous contrast injection per CTA protocol. Multiplanar reconstruction images were obtained. Exam was performed using dose reduction techniques and the ALARA principle. CLINICAL HISTORY: Dizziness FINDINGS: CTA NECK: Aortic arch: Evaluation of the arch is limited due to contrast injection. Right carotid artery: The right common carotid artery is patent without stenosis. The cervical portions of the right internal carotid artery are patent without stenosis. 0% stenosis per NASCET criteria. Left carotid artery: The left common carotid artery is patent without stenosis. The cervical portions of the left internal carotid artery are patent without stenosis. There is calcification at the carotid bulb. 0% stenosis per NASCET criteria. Vertebral arteries: The vertebral arteries are patent. There is calcification at the carotid bulb. No significant stenosis. IMPRESSION: No evidence of carotid stenosis. Patent vertebral arteries. Reviewed, Interpreted and Dictated by Myrna Bustillos MD Transcribed by Anjelica Baez Authenticated and . [facility]
[2024-12-30] MEDS: MECLIZINE 25MG TABLET 50 MG PO (11:51)
[2024-12-30 11:55] LABS: Hematocrit 31.6 % (37.0-47.0); Hemoglobin 9.3 g/dL (12.2-16.2); Immature Granulocytes % 0.3 %; Mean Corpuscular HGB Conc 29.4 g/dL (31.8-35.4); Mean Corpuscular Hemoglobin 22.5 pg (27.0-31.2); Mean Corpuscular Volume 76.5 fl (81-99); Nucleated Red Blood Cells % 0 %; Platelet Count 281 K/mm3 (142-424); Red Blood Count 4.13 M/mm3 (4.20-5.40); Red Cell Distribution Width-SD 50.6 fL; White Blood Count 8.6 K/mm3 (4.8-10.8)
--- NOTE | 2024-12-30 12:01 | ECG_ITS ---
APPROVED REPORT Exam: Resting ECG HR:62 bpm ECG Measurements Heart Rate 62 AXES ND 130 P 76 QRSd 136 QRS 95 QT 466 T 75 QTc 470 Conclusion SINUS RHYTHM RIGHT BUNDLE BRANCH BLOCK [120+ ms QRS DURATION, UPRIGHT V1, 40+ ms S IN I/aVL/V4/V5/V6] SEPTAL MYOCARDIAL INFARCTION , OF INDETERMINATE AGE [40+ ms Q WAVE IN V1/V2] ABNORMAL ECG Electronically signed by : ZAFAR CLARK, 01/01/2025 09:21:55
[2024-12-30 12:02] LABS: Albumin Level 4.2 g/dl (3.5-5.0); Chloride 109 mmol/L (98-107); Potassium 4.3 mmoL/L (3.5-5.1); Sodium 141 mmol/L (136-145)
[2024-12-30 12:05] LABS: Alanine Aminotransferase 15 U/L (12-78); Albumin/Globulin Ratio 1.3 (1.1-1.8); Alkaline Phosphatase 60 U/L (38-126); Anion Gap 13.3 mEq/L (5-15); Aspartate Amino Transferase 30 U/L (14-36); Bilirubin,Total 0.6 mg/dl (0.2-1.3); Blood Urea Nitrogen 12 mg/dl (7-17); Calcium 9.3 mg/dl (8.4-10.2); Carbon Dioxide 23 mmol/L (22.0-30.0); Creatinine Clearance Estimated 127 mL/min (50-200); Creatinine,Serum 0.70 mg/dl (0.52-1.04); Estimated Glomerular Filt Rate 89 ml/min (>60); GFR (African American) 108 ML/MIN (>60); Globulin 3.2 g/dL (1.3-3.2); Glucose 91 mg/dl (74-100); Total Protein,Serum 7.4 g/dl (6.3-8.2)
[2024-12-30 12:06] LABS: Magnesium 1.9 mg/dl (1.6-2.3)
[2024-12-30 12:14] LABS: NT Pro Brain Natriuretic Pep. 77.2 pg/mL (0-125)
[2024-12-30 12:15] VITALS: BP 127/74; PULSE 62; O2SAT 100
[2024-12-30 12:18] VITALS: BP 126/77; BP 127/74; BP 128/79; PULSE 62; PULSE 64; PULSE 71
[2024-12-30] MEDS: 0.9 % SODIUM CHLORIDE 50 ML VIAL IV (12:26)
[2024-12-30] MEDS: SODIUM CHLORIDE 0.9% 10ML SYR (RAD ONLY) 10 ML IV (12:26)
[2024-12-30] MEDS: IOPAMIDOL-370 (76%);100ML BOTTLE 80 ML IV (12:27)
[2024-12-30 12:30] LABS: Troponin I < 0.01 ng/ml (0.00-0.034)
[2024-12-30 13:18] LABS: Hepatitis C Ab Qual. W/ RFX NEGATIVE (Negative)
[2024-12-30 14:19] VITALS: BP 139/79; PULSE 65; O2SAT 95
[2024-12-30 14:22] VITALS: BP 139/79; PULSE 63; RESP 16; TEMP 36.8; O2SAT 100
== END 2024-12-30 14:22 | disposition home or self-care (01) ==
PROVIDERS: Physician Assistant; Emergency Provider Student in an Organized Health Care Education/Training Program; PCP Family Medicine
DX: H81.10 Benign paroxysmal vertigo, unspecified ear (principal); F17.210 Nicotine dependence, cigarettes, uncomplicated
CPT/HCPCS: 70450; 70496; 70498; 80053; 83735; 83880; 84484; 85025; 86803; 87389; 93005; 99284; 99285; Q9967

== ENCOUNTER 2025-01-06 15:22 | Outpatient (CLI) | payer MEDICAID, SELFPAY ==
[2025-01-06 20:52] LABS: Iron 26 ug/dL (37-170)
[2025-01-06 21:23] LABS: Thyroid Stimulating Hormone 50.20 uIU/mL (0.465-4.68)
== END 2025-01-06 23:59 | disposition home or self-care (01) ==
LOC: LAB.DROPOF 01-07 11:09
PROVIDERS: PCP Family Medicine; Visit Provider Family Medicine
DX: E03.9 Hypothyroidism, unspecified (principal); D50.9 Iron deficiency anemia, unspecified
CPT/HCPCS: 83540; 84443